=== PATIENT | female | born 1950 | race Caucasian/White ===

== ENCOUNTER → 2016-11-25 | Day surgery (SDC) | payer BC, OTHER ==
[2016-11-14 12:15] VITALS: Ht 158.8 cm; Wt 63.6 kg
[~2016-11-25] VITALS: Ht 158.8 cm; Wt 63.6 kg
[~2016-11-25] MED LIST: ASCO500T87 PO; CALC-393 PO; LIDOCAINE HCL 2% 2 ML VIAL (20MG/ML) ONE; MIDAZOLAM HCL 1 MG/ML 2ML VIAL ONE; OMEG10007 PO; ONDANSETRON INJ 2 MG/ML 2 ML VIAL ONE; PROPOFOL IV EMULSION 10 MG/ML 20 ML VIAL IV ONE; REDCAP2 PO; VTMD PO
--- NOTE | 2016-11-25 10:29 | Endo History and Physical ---
History & Physical Date of Service: Nov 25, 2016. Chief Complaint: screening Referring Physician: Stephanie MCFARLANE History of Present Illness 66 yo CF who presents for screening colonoscopy. Past Surgical History Hx Cardiac Surgery: No Hx Internal Defibrillator: No Hx Pacemaker: No Hx Abdominal Surgery: Yes (TUBAL LIGATION, CHIDI) Hx of Implantable Prosthesis: No Hx Cancer Surgery: No Hx Thoracic Surgery: No Hx Orthopedic: Yes (RT TKA) Hx Urinary Tract Surgery: No Family History Polyp Social History Smoking Status: Never Smoker Hx Substance Use: No Hx Alcohol Use: No Allergies Coded Allergies: Naproxen (Verified Adverse Reaction, Unknown, disoriented, 11/14/16) Statins (Verified Adverse Reaction, Unknown, Muscle Aches, 11/14/16) Current Medications Reported Home Medications Medications Dose Route/Sig Max Daily Dose Days Date Category Vitamin D (Ergocalciferol) 50,000 Interunit Cap 1 Cap PO WK 11/14/16 Reported Vitamin C Tr/Leeann Hips (Ascorbic Acid) 500 Mg Tab 2 Tab PO QAM 11/14/16 Reported Red Yeast Rice (Red Yeast Rice Extract) 600 Mg Cap 2 Cap PO QAM 11/14/16 Reported [place]-3 (Fish Oil) 1 Ea Cap 2 Cap PO QAM 11/14/16 Reported Calcium (Calcium Carbonate) 600 Mg Tab 1 Tab PO QAM 11/14/16 Reported Vital Signs Weight (Kilograms): 63.64 Height (Feet): 5 Height (Inches): 2.5 Date Time Temp Pulse Resp B/P Pulse Ox O2 Delivery O2 Flow Rate FiO2 11/25/16 09:18 36.9 76 20 120/61 100 Room Air Physical Exam General Appearance: WD/WN, no apparent distress Respiratory/Chest: Auscultation: breath sounds normal Cardiovascular: Heart Auscultation: RRR Abdomen: Bowel Sounds: normal Inspection & Palpation: soft, non-distended, no tenderness, guarding & rebound Assessment and Plan Assessment: 66 yo CF who presents for screening colonoscopy. Plan: Proceed with colonoscopy.
--- NOTE | 2016-11-25 11:03 | GI REPORT ---
Procedure Date: 11/25/2016 10:33 AM Procedure: Colonoscopy Indications: Screening for colorectal malignant neoplasm Medicines: Monitored Anesthesia Care Complications: No immediate complications. Estimated Blood Loss: Estimated blood loss: none. Procedure: Pre-Anesthesia Assessment: - Prior to the procedure, a History and Physical was performed, and patient medications and allergies were reviewed. The patient's tolerance of previous anesthesia was also reviewed. The risks and benefits of the procedure and the sedation options and risks were discussed with the patient. All questions were answered, and informed consent was obtained. Prior Anticoagulants: The patient has taken no previous anticoagulant or antiplatelet agents. ASA Grade Assessment: II - A patient with mild systemic disease. After reviewing the risks and benefits, the patient was deemed in satisfactory condition to undergo the procedure. After I obtained informed consent, the scope was passed under direct vision. Throughout the procedure, the patient's blood pressure, pulse, and oxygen saturations were monitored continuously. The Scope was introduced through the anus and advanced to the terminal ileum. The colonoscopy was performed without difficulty. The patient tolerated the procedure well. The quality of the bowel preparation was good. The terminal ileum, ileocecal valve, appendiceal orifice, and rectum were photographed. Findings: Multiple small-mouthed diverticula were found in the sigmoid colon. Internal hemorrhoids were found during retroflexion. The hemorrhoids were small. Impression: - Diverticulosis in the sigmoid colon. - Internal hemorrhoids. - No specimens collected. Recommendation: - Resume previous diet. - Continue present medications. - Repeat colonoscopy in 10 years for surveillance. - Return to primary care physician as previously scheduled. Eh Abrams, DO 11/25/2016 11:02:49 AM This report has been signed electronically. Note Initiated On: 11/25/2016 10:33 AM I attest to the content of the Intraoperative Record and orders documented therein, exceptions below
--- NOTE | 2016-11-25 11:03 | Discharge Instructions ---
Endoscopy Patient Instructions Date / Procedure(s) Performed Nov 25, 2016. Colonoscopy Allergy Information Coded Allergies: Naproxen (Verified Adverse Reaction, Unknown, disoriented, 11/14/16) Statins (Verified Adverse Reaction, Unknown, Muscle Aches, 11/14/16) Discharge Date / Findings Nov 25, 2016. Diverticulosis Internal hemorrhoids Medication Instructions Stopped Medication(s): last dose vitamin and suplements on Monday OK to resume all medications today as prescribed. Reported Home Medications Medications Dose Route/Sig Max Daily Dose Days Date Category Vitamin D (Ergocalciferol) 50,000 Interunit Cap 1 Cap PO WK 11/14/16 Reported Vitamin C Tr/Leeann Hips (Ascorbic Acid) 500 Mg Tab 2 Tab PO QAM 11/14/16 Reported Red Yeast Rice (Red Yeast Rice Extract) 600 Mg Cap 2 Cap PO QAM 11/14/16 Reported [place]-3 (Fish Oil) 1 Ea Cap 2 Cap PO QAM 11/14/16 Reported Calcium (Calcium Carbonate) 600 Mg Tab 1 Tab PO QAM 11/14/16 Reported Provider Instructions Activity Restrictions - No exercising or heavy lifting for 24 hours. - Do not drink alcohol the day of the procedure. - Do not drive a car or operate machinery until the day after the procedure. - Do not make any important decisions or sign important papers in 24 hours after the procedure. Following Day: - Return to full activity which may include returning to work/school. Diet Start your diet with liquids and light foods (jello, soup, juice, toast). Then eat your usual diet if not nauseated. Treatment For Common After Affects For mild abdominal pain, bloating, or excessive gas: - Rest - Eat lightly - Lie on right side Follow-Up Information Follow-up with Stephanie MCFARLANE as scheduled Anesthesia Information What You Should Know You have had a procedure that required some medicine to reduce anxiety and discomfort. This treatment is called moderate sedation. After receiving the treatment, you may be sleepy, but you will be able to breathe on your own. The effects of the treatment may last for several hours. Follow these instructions along with Activity/Diet recommendations noted above: * Do NOT do anything where dizziness or clumsiness would be dangerous. * Rest quietly at home today, then you can be up and about tomorrow. * Have a responsible person stay with you the rest of today. * You may have had an I.V. today. If so, you may take the dressing off later today. Recommendations Call your doctor if: * Trouble breathing * Continuous vomiting for more than 24 hours * Temperature above 101 degrees * Severe abdominal pain or bloating * Pain not relieved by pain medicine ordered * There is increased drainage or redness from any incision * A large amount of rectal bleeding greater than 2-3 tablespoons. (If you had a polyp/s removed or have hemorrhoids, a small amount of blood - from the rectum is to be expected.) * You have any unanswered questions or concerns. IN THE EVENT OF A SERIOUS EMERGENCY, GO TO THE NEAREST EMERGENCY ROOM Your discharge instructions were prepared by provider Eh Abrams. Patient Instructions Signature Page Sandy Henry Patient (or Guardian) Signature/Date: I have read and understand the instructions given to me by my caregivers. Caregiver/RN/Doctor Signature/Date: The above-named patient and/or guardian has received patient instructions on this date. + Original Patient Signature Page (only) stays with chart. Please make copy for patient.
[2016-11-25 11:27] VITALS: BP 106/59; PULSE 66; O2SAT 97
--- NOTE | 2016-11-25 12:08 | Anesthesiology Progress Note ---
Anesthesia Post Op Note Date & Time Nov 25, 2016 at 12:08 Vital Signs Pain Intensity: 0 Vital Signs Past 12 Hours Date Time Temp Pulse Resp B/P Pulse Ox O2 Delivery O2 Flow Rate FiO2 11/25/16 11:27 66 20 106/59 97 Room Air 11/25/16 11:14 65 20 94/52 96 Room Air 11/25/16 10:58 36.9 70 20 96/55 95 Room Air 11/25/16 09:18 36.9 76 20 120/61 100 Room Air Notes Mental Status: alert / awake / arousable, participated in evaluation Pt Amnestic to Procedure: Yes Nausea / Vomiting: adequately controlled Pain: adequately controlled Airway Patency, RR, SpO2: stable & adequate BP & HR: stable & adequate Hydration State: stable & adequate Anesthetic Complications: no major complications apparent
== END | disposition home or self-care (01) ==
LOC: C.GI 08:06
PROVIDERS: ATTEND Internal Medicine
DX: Z12.11 Encounter for screening for malignant neoplasm of colon (principal); K57.30 Diverticulosis of large intestine without perforation or abscess without bleeding; K64.8 Other hemorrhoids; Z98.51 Tubal ligation status; Z98.890 Other specified postprocedural states; Z88.5 Allergy status to narcotic agent

== ENCOUNTER → 2017-03-06 | Outpatient (CLI) | payer OTHER ==
[~2017-03-06] MED LIST changes: -LIDOCAINE HCL 2% 2 ML VIAL (20MG/ML) ONE; -MIDAZOLAM HCL 1 MG/ML 2ML VIAL ONE; -ONDANSETRON INJ 2 MG/ML 2 ML VIAL ONE; -PROPOFOL IV EMULSION 10 MG/ML 20 ML VIAL IV ONE
[2017-03-06 18:03] LABS: CALCIUM 9.6 mg/dl (8.5-10.1)
[2017-03-06 18:05] LABS: BLOOD UREA NITROGEN 12 mg/dl (7-18); BUN/CREATININE RATIO 16.8 (10-20); CARBON DIOXIDE 28 mmol/L (21-32); CHLORIDE 107 mmol/L (98-107); CHOLESTEROL 231 mg/dl (0-200); CHOLESTEROL/HDL RATIO 5.9; CREATININE 0.74 mg/dl (0.60-1.20); GLUCOSE 84 mg/dl (70-99); HDL CHOLESTEROL 39 mg/dl; LDL CHOLESTEROL CALCULATED 142 mg/dl; POTASSIUM 4.2 mmol/L (3.5-5.1); SODIUM 142 mmol/L (136-145); TRIGLYCERIDES 251 mg/dl (0-150); VERY LOW DENSITY LIPOPROT CALC 50 mg/dl
== END ==
LOC: C.LABBFT 11:05
PROVIDERS: ATTEND Nurse Practitioner
DX: E21.0 Primary hyperparathyroidism (principal); E55.9 Vitamin D deficiency, unspecified; M85.80 Other specified disorders of bone density and structure, unspecified site; E78.00 Pure hypercholesterolemia, unspecified

== ENCOUNTER → 2017-03-10 | Outpatient (CLI) | payer OTHER ==
--- NOTE | 2017-03-10 13:54 | MAMMOGRAPHY REPORT ---
BILATERAL DIGITAL SCREENING MAMMOGRAM WITH CAD: 03/10/2017 CLINICAL HISTORY: Routine screening. Patient has no complaints. TECHNIQUE: Current study was also evaluated with a Computer Aided Detection (CAD) system. Bilateral CC and MLO views were obtained. COMPARISON: Comparison is made to exams dated: 07/18/2011 mammogram, 01/17/2012 mammogram, 01/17/2013 mammogram, 01/20/2014 mammogram, 01/21/2015 mammogram, and 01/26/2016 mammogram - [facility]. BREAST COMPOSITION: The tissue of both breasts is almost entirely fatty. FINDINGS: No suspicious masses, calcifications, or areas of architectural distortion are noted in ei ther breast. There has been no significant interval change compared to prior exams. A biopsy marker clip is again noted in the right 12:00 breast from prior benign stereotactic biopsy of calcifications . IMPRESSION: ACR BI-RADS CATEGORY 2: BENIGN There is no mammographic evidence of malignancy. A 1 year screening mammogram is recommended. The pa tient will receive written notification of the results. Approximately 10% of breast cancers are not detected with mammography. A negative mammographic report should not delay biopsy if a clinically suggestive mass is present. Rosa Geronimo M.D. /:03/10/2017 11:27:09 Paediatric Surgeon: Mechelle BATISTA(R)(M), [facility] letter sent: Normal 1/2 BI-RADS Code: ACR BI-RADS Category 2: Benign
== END | disposition home or self-care (01) ==
LOC: C.MAMM 10:40
PROVIDERS: ATTEND Obstetrics & Gynecology
DX: Z12.31 Encounter for screening mammogram for malignant neoplasm of breast (principal)

== ENCOUNTER → 2017-07-24 | Outpatient (CLI) | payer OTHER | END | disposition home or self-care (01) | LOC: C.LABBFT 14:30 | PROVIDERS: ATTEND Internal Medicine Endocrinology, Diabetes & Metabolism | DX: E21.0 Primary hyperparathyroidism (principal); E55.9 Vitamin D deficiency, unspecified ==

== ENCOUNTER → 2017-09-08 | Outpatient (CLI) | payer OTHER ==
[2017-09-08 12:54] LABS: ALT/SGPT 31 U/L (12-78); AST/SGOT 26 U/L (15-37); BLOOD UREA NITROGEN 15 mg/dl (7-18); BUN/CREATININE RATIO 22.2 (10-20); CALCIUM 9.2 mg/dl (8.5-10.1); CARBON DIOXIDE 27 mmol/L (21-32); CHLORIDE 106 mmol/L (98-107); GLUCOSE 74 mg/dl (70-99); POTASSIUM 3.9 mmol/L (3.5-5.1); SODIUM 138 mmol/L (136-145)
[2017-09-08 12:57] LABS: ALB/GLOB RATIO 1.1 (0.9-2); ALKALINE PHOSPHATASE 52 U/L (45-117); CHOLESTEROL 207 mg/dl (0-200); CHOLESTEROL/HDL RATIO 5.3; HDL CHOLESTEROL 39 mg/dl; LDL CHOLESTEROL CALCULATED 119 mg/dl; TRIGLYCERIDES 243 mg/dl (0-150); VERY LOW DENSITY LIPOPROT CALC 49 mg/dl
== END | disposition home or self-care (01) ==
LOC: C.LABBFT 10:16
PROVIDERS: ATTEND Nurse Practitioner
DX: E78.00 Pure hypercholesterolemia, unspecified (principal); M85.80 Other specified disorders of bone density and structure, unspecified site

== ENCOUNTER → 2017-09-13 | Outpatient (CLI) | payer OTHER | END | disposition home or self-care (01) | LOC: C.PAPS 10:58 | PROVIDERS: ATTEND Obstetrics & Gynecology | DX: Z12.4 Encounter for screening for malignant neoplasm of cervix (principal) ==

== ENCOUNTER 2019-12-20 15:41 | Inpatient (IN) ==
[2019-12-20] MEDS ORDERED: ONDANSETRON INJ 2 MG/ML 2 ML VIAL IV STA (15:56)
[2019-12-20] MEDS ORDERED: SODIUM CHLORIDE 0.9% 1000ML 1,000 ML IV SCH (16:00)
--- NOTE | 2019-12-20 16:01 | Emergency Department Note ---
ED Provider Note Provider: Augusto Da Silva MD DATE OF SERVICE: 12/20/2019 CHIEF COMPLAINT: Shortness of breath, dizziness HISTORY OF PRESENT ILLNESS: Patient is a 69-year-old female history of arthritis presenting today complaining of 5 days of some dizziness and 2 days of significant shortness of breath. Patient states on Monday this week and began to have a headache and some dizziness. Denies numbness or tingling in the extremities. Reports yesterday started with cough and feeling short of breath. Has been taking care of some sick young relatives and 1 of her relatives has had pneumonia in 1 recently returned from [place]. No other travel for this patient reported. No leg swelling. Denies chest pain or abdominal pain. Denies headache at the current time. States he does feel dizzy and became nauseous upon arriving here. REVIEW OF SYSTEMS: A total of 10 review of systems was obtained and negative except as stated above in the HPI. PAST MEDICAL HISTORY: As noted above MEDICATIONS: Has tried some ibuprofen at home without improvement. Aspirin SOCIAL HISTORY: Non-smoker. Denies drug use. PHYSICAL EXAM: GENERAL: alert and oriented laying on the stretcher tachypneic Head: normocephalic and atraumatic EYES: No injection, discharge or icterus. PERRL, EOMI. NECK: Trachea midline. Supple. ENT: Mucous membranes pink and moist. Pharynx without erythema or exudate. LUNGS: Airway patent. Breath sounds clear but increased work of breathing and moderately tachypneic HEART: Regular rate and rhythm. No chest wall tenderness ABDOMEN: Soft and non-tender, without guarding or rebound. SKIN: Acyanotic, warm, dry, without rashes EXTREMITIES: Without swelling, tenderness or deformity NEUROLOGICAL: No focal deficits. No aphasia. No facial droop or slurred speech. Normal strength and tone in the extremities. Sensation to gross touch normal. EKG: Normal sinus rhythm 87 beats per minutes. No PVC. No ST elevation but some inferior lateral ST depression, QTC of 478. Compared to previous from May 092011 ST depressions do appear notable today. CONTINUOUS CARDIAC MONITORING: was ordered and showed a heart rate of 78 bpm in NSR Patient's hypertension was referred to the hospitalist HOSPITAL COURSE: 155 Patient was first seen and H&P performed. 171 Patient reassessed and updated. Patient was endorsing mild improvement. 182 patient reassessed and updated. Still with tachypnea and feeling chills. Patient's laboratory studies and imaging reviewed. Differential includes Reactive airway disease, pneumonia, pneumothorax, COPD, CHF, infections, cardiac ischemia, pulmonary embolism, musculoskeletal, gastroin testinal, as well as other pathologies. IMPRESSION/MEDICAL DECISION MAKING: Patient is significantly tachypneic upon arrival but lungs sound clear. No fevers reported. Some ill contacts at home noted. No travel for this patient. Seems less likely to be at the current time given lack of community spread to be COIVD. EKG, d-dimer, chest x-ray, and basic labs were completed. Influenza testing sent. Patient without focal neurological deficit but she does relay feeling dizzy. States she feels nauseous second to this. Given some Zofran IV fluid. Benign abdomen otherwise. Patient later reports that she has a history distantly of some vertigo that was somewhat similar to this. Given this I did trial some meclizine. EKG does show some lateral inferior ST depression. Again patient denies acute chest pain at this point. Patient has been saturating 100% on 2 L of oxygen. On reassessment patient stated some improvement. No significant anemia is noted. Some mild lymphopenia and leukopenia is noted. Slight hyponatremia noted. Negative troponin. Patient still somewhat tachypneic. D-dimer was positive and CT of the chest was complete as well as CT of the head. CT the head unremarkable. CT of the chest without evidence of PE findings consistent with possible bronchitis are noted. Influenza testing does come back positive flu B. Symptoms likely related to this. Started on Tamiflu as the patient still tachypneic I believe requires further observation here in the hospital. The hospitalist was called to evaluate the patient. DIAGNOSIS: Influenza, shortness of breath, dizziness DISPOSITION: Hospitalist will evaluate Impression & Plan Influenza B, Acute dyspnea, Dizziness Past Med/Surg History Medical History (Updated 12/20/19 @ 20:57 by Augusto Da Silva M.D.) Diverticulosis (Resolved) History of primary hyperparathyroidism (Resolved) Surgical History (Updated 04/24/19 @ 11:48 by Joaquin Robbins) History of adenoidectomy History of colonoscopy History of knee replacement History of parathyroid surgery History of tonsillectomy Family History (Updated 04/24/19 @ 11:59 by Joaquin Robbins) Father Diabetes Brother Diabetes Social History (Updated 04/24/19 @ 12:01 by Joaquin Robbins) Preferred Language: Greek Communication Ability: Effective 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 Beliefs That Will Affect Care: None Current Living Situation: Spouse Feels Safe at Home: Yes Safety Concerns: Feels Safe At This Time Smoking Status: Never smoker Hx Alcohol Use: No Hx Substance Use: No Results & Data Vital Signs Vital Signs - 24 hr 12/20/19 15:52 12/20/19 16:15 12/20/19 16:45 Temperature 36.5 C Temperature Source Oral Pulse Rate 91 H Pulse Rate [Apical] 78 Pulse Rate from SpO2 Sensor Respiratory Rate 44 H 35 H Respiratory Effort / Characteristics Short of Breath Respiratory Depth Shallow Respiratory Pattern Tachypnea Tachypnea Blood Pressure 93/75 L Blood Pressure [Left Arm] 114/81 Blood Pressure Mean 81 Blood Pressure Mean [Left Arm] 92 Pulse Oximetry 100 100 100 Oxygen Delivery Method Nasal Cannula Nasal Cannula Nasal Cannula Oxygen Flow Rate 2 2 2 Sepsis Recent Fever Within 48 Hours No Sepsis Action Taken by Nursing No Action Required 12/20/19 17:00 12/20/19 17:36 12/20/19 18:31 Temperature Temperature Source Pulse Rate 73 73 Pulse Rate [Apical] 77 Pulse Rate from SpO2 Sensor 73 73 Respiratory Rate 28 H 41 H 28 H Respiratory Effort / Characteristics Respiratory Depth Respiratory Pattern Blood Pressure 124/93 110/74 Blood Pressure [Left Arm] 133/67 Blood Pressure Mean 108 83 Blood Pressure Mean [Left Arm] 89 Pulse Oximetry 100 99 100 Oxygen Delivery Method Room Air Oxygen Flow Rate Sepsis Recent Fever Within 48 Hours Sepsis Action Taken by Nursing Laboratory Data Result diagrams: 12/20/19 16:29 12/20/19 16:29 Lab Results 12/20/19 12/20/19 12/20/19 Range/Units 16:17 16:29 16:29 WBC 2.89 L (4.8-10.8) K/uL RBC 4.45 (4.2-5.4) M/uL Hgb 13.7 (12.0-16.0) g/dL Hct 39.1 (37-47) % MCV 87.9 (80-100) fL MCH 30.8 (25-34) pg MCHC 35.0 (32-36) g/dL RDW Std Deviation 41.3 (36.4-46.3) fL RDW Coeff of Koko 12.8 (11.5-14.5) % Plt Count 140 (130-400) K/uL MPV 10.6 H (7.4-10.4) fL Immature Gran % (Auto) 0.3 % Neut % (Auto) 57.5 % Lymph % (Auto) 29.4 % Mcintosh % (Auto) 11.4 % Eos % (Auto) 0.7 % Baso % (Auto) 0.7 % Immature Gran # (Auto) 0.01 (0.00-0.02) K/uL Neut # (Auto) 1.66 (1.4-6.5) K/uL Lymph # (Auto) 0.85 L (1.2-3.4) K/uL Mc[place]osh # (Auto) 0.33 (0.11-0.59) K/uL Eos # (Auto) 0.02 (0-0.5) K/uL Baso # (Auto) 0.02 (0-0.2) K/uL PT 11.1 (9.0-12.0) Seconds INR 1.1 (0.9-1.1) APTT 28.3 (21.0-31.0) Seconds PTT Ratio 1.0 D-Dimer 610 H* (0-500) ug/L FEU Sodium (136-145) mmol/L Potassium (3.5-5.1) mmol/L Chloride (98-107) mmol/L Carbon Dioxide (21-32) mmol/L Anion Gap (3-11) BUN (7-18) mg/dl Creatinine (0.6-1.2) mg/dl Est Cr Clr Drug Dosing ml/min Est GFR ( Amer) Est GFR (Non-Af Amer) BUN/Creatinine Ratio (10-20) Glucose (70-99) mg/dl Calcium (8.5-10.1) mg/dl Magnesium (1.8-2.4) mg/dl Total Bilirubin (0.2-1) mg/dl AST (15-37) U/L ALT (12-78) U/L Alkaline Phosphatase (45-117) U/L Troponin I (0-0.045) ng/ml Total Protein (6.4-8.2) gm/dl Albumin (3.4-5.0) gm/dl Globulin (2.5-4.0) gm/dl Albumin/Globulin Ratio (0.9-2) Specimen Hemolysis Urine Color Urine Appearance (Clear) Urine pH (4.5-7.5) Ur Specific [place] (1.000-1.030) Urine Protein (Negative) Urine Glucose (UA) (Negative) Urine Ketones (Negative) Urine Blood (Negative) Urine Nitrite (Negative) Urine Bilirubin (Negative) Urine Urobilinogen (Negative) Ur Leukocyte Esterase (Negative) Urine WBC (Auto) (0-5) /hpf Urine RBC (Auto) (0-4) /hpf U Hyaline Cast (Auto) (0-5) /lpf U Epithel Cells (Auto) (0-5) /lpf Urine Bacteria (Auto) (Negative) Influenza Type A (PCR) Neg for Influ A (Neg) Influenza Type B (PCR) Pos for Influ B A* (Neg) 12/20/19 12/20/19 12/20/19 Range/Units 16:29 17:38 17:43 WBC (4.8-10.8) K/uL RBC (4.2-5.4) M/uL Hgb (12.0-16.0) g/dL Hct (37-47) % MCV (80-100) fL MCH (25-34) pg MCHC (32-36) g/dL RDW Std Deviation (36.4-46.3) fL RDW Coeff of Koko (11.5-14.5) % Plt Count (130-400) K/uL MPV (7.4-10.4) fL Immature Gran % (Auto) % Neut % (Auto) % Lymph % (Auto) % Mcintosh % (Auto) % Eos % (Auto) % Baso % (Auto) % Immature Gran # (Auto) (0.00-0.02) K/uL Neut # (Auto) (1.4-6.5) K/uL Lymph # (Auto) (1.2-3.4) K/uL [place] # (Auto) (0.11-0.59) K/uL Eos # (Auto) (0-0.5) K/uL Baso # (Auto) (0-0.2) K/uL PT (9.0-12.0) Seconds INR (0.9-1.1) APTT (21.0-31.0) Seconds PTT Ratio D-Dimer (0-500) ug/L FEU Sodium 133 L (136-145) mmol/L Potassium Cancelled (3.5-5.1) mmol/L Chloride 103 (98-107) mmol/L Carbon Dioxide 19 L (21-32) mmol/L Anion Gap 11.0 (3-11) BUN 12 (7-18) mg/dl Creatinine 0.97 (0.6-1.2) mg/dl Est Cr Clr Drug Dosing 42.7 ml/min Est GFR ( Amer) 68.6 Est GFR (Non-Af Amer) 59.2 BUN/Creatinine Ratio 12.6 (10-20) Glucose 95 (70-99) mg/dl Calcium 8.7 (8.5-10.1) mg/dl Magnesium Cancelled (1.8-2.4) mg/dl Total Bilirubin 0.9 (0.2-1) mg/dl AST Cancelled (15-37) U/L ALT 41 (12-78) U/L Alkaline Phosphatase 47 (45-117) U/L Troponin I < 0.015 (0-0.045) ng/ml Total Protein 7.2 (6.4-8.2) gm/dl Albumin 3.5 (3.4-5.0) gm/dl Globulin 3.7 (2.5-4.0) gm/dl Albumin/Globulin Ratio 0.9 (0.9-2) Specimen Hemolysis Urine Color Yellow Urine Appearance Clear (Clear) Urine pH 7.0 (4.5-7.5) Ur Specific [place] 1.004 (1.000-1.030) Urine Protein Negative (Negative) Urine Glucose (UA) Negative (Negative) Urine Ketones 1+ H (Negative) Urine Blood 1+ H (Negative) Urine Nitrite Negative (Negative) Urine Bilirubin Negative (Negative) Urine Urobilinogen Negative (Negative) Ur Leukocyte Esterase Negative (Negative) Urine WBC (Auto) 1-5 (0-5) /hpf Urine RBC (Auto) 0-4 (0-4) /hpf U Hyaline Cast (Auto) 0 (0-5) /lpf U Epithel Cells (Auto) >30 H (0-5) /lpf Urine Bacteria (Auto) Negative (Negative) Influenza Type A (PCR) (Neg) Influenza Type B (PCR) (Neg) Administered Medications Oseltamivir Phosphate (Tamiflu) 30 mg PO ONCE LISA; Protocol Stop: 12/25/19 17:59 Last Admin: 12/20/19 19:09 Dose: 30 mg Documented by: [id number] Discontinued Medications Sodium Chloride (Nss 1000ml) 1,000 mls @ 999 mls/hr IV .Q1H1M LISA Stop: 12/20/19 17:00 Last Infusion: 12/20/19 17:14 Dose: 0 mls/hr Documented by: [id number] Admin: 12/20/19 16:13 Dose: 999 mls/hr Documented by: [id number] Ioversol (Optiray 320 125ml) 119 ml IV ONCE PRN PRN Reason: Interaction Checking Stop: 12/24/19 18:03 Last Admin: 12/20/19 18:04 Dose: 119 ml Documented by: [id number] Meclizine HCl (Antivert) 25 mg PO NOW STA Stop: 12/20/19 16:22 Last Admin: 12/20/19 16:40 Dose: 25 mg Documented by: [id number] Ondansetron HCl (Zofran) 4 mg IV NOW STA Stop: 12/20/19 15:57 Last Admin: 12/20/19 16:13 Dose: 4 mg Documented by: [id number] Discharge Plan Visit Data *Final* Discharge Date/Time: 12/20/19 20:15 Chief Complaint: Shortness of Breath/Dyspnea Stated Complaint: BREATHING DIFF ED Provider: Augusto Da Silva Discharge Problem: Influenza B, Acute dyspnea, Dizziness Patient Disposition: Admitted As Inpatient Condition: Fair Discharge Instructions Interventions: ED Discharge Assessment Last Done: 12/20/19 20:15
[2019-12-20] MEDS ORDERED: MECLIZINE HCL 25 MG TAB PO STA (16:21)
--- NOTE | 2019-12-20 16:44 | XRay Report ---
XR chest 1V portable CLINICAL HISTORY: Dyspnea COMPARISON STUDY: May 09, 2012 FINDINGS: The cardiac and mediastinal contours are normal. There is no evidence of focal pulmonary co nsolidation. There is no evidence of failure. No pleural effusions are visualized.[There is a thoraco lumbar scoliosis. IMPRESSION: No active disease in the chest. ACT 112: Negative or not required by law. Electronically signed by: Sanjay Guevara M.D. 12/20/2019 4:43 PM
[2019-12-20 16:51] LABS: Basophils # (auto) 0.02 K/uL (0-0.2); Basophils % (auto) 0.7 %; Eosinophils # (auto) 0.02 K/uL (0-0.5); Eosinophils % (auto) 0.7 %; Hematocrit (blood only) 39.1 % (37-47); Hemoglobin 13.7 g/dL (12.0-16.0); Immature Granulocytes # (auto) 0.01 K/uL (0.00-0.02); Immature Granulocytes % (auto) 0.3 %; Lymphocytes # (auto) 0.85 K/uL (1.2-3.4); Lymphocytes % (auto) 29.4 %; Mean Corpuscular Hemoglobin 30.8 pg (25-34); Mean Corpuscular Volume 87.9 fL (80-100); Mean Platelet Volume 10.6 fL (7.4-10.4); Monocytes # (auto) 0.33 K/uL (0.11-0.59); Monocytes % (auto) 11.4 %; Neutrophils # (auto) 1.66 K/uL (1.4-6.5); Neutrophils % (auto) 57.5 %; Platelet Count 140 K/uL (130-400); RDW Coefficient of Variation 12.8 % (11.5-14.5); RDW Standard Deviation 41.3 fL (36.4-46.3); Red Blood Count 4.45 M/uL (4.2-5.4); White Blood Count 2.89 K/uL (4.8-10.8)
[2019-12-20 16:53] LABS: Influenza A virus by PCR Neg for Influ A (Neg)
[2019-12-20 17:06] LABS: INR 1.1 (0.9-1.1); Partial Thromboplastin Time 28.3 Seconds (21.0-31.0); Prothrombin Time 11.1 Seconds (9.0-12.0)
[2019-12-20 17:07] LABS: D Dimer 610 ug/L FEU (0-500)
[2019-12-20 17:20] LABS: Alanine Aminotransferase 41 U/L (12-78); Albumin Globulin Ratio 0.9 (0.9-2); Albumin Level 3.5 gm/dl (3.4-5.0); Alkaline Phosphatase 47 U/L (45-117); BUN Creatinine Ratio 12.6 (10-20); Bilirubin,Total 0.9 mg/dl (0.2-1); Blood Urea Nitrogen 12 mg/dl (7-18); Calcium 8.7 mg/dl (8.5-10.1); Carbon Dioxide 19 mmol/L (21-32); Chloride 103 mmol/L (98-107); Creatinine Clr Calc Pharmacy 42.7 ml/min; Est GFR (African American) 68.6; Est GFR (Non-African American) 59.2; Globulin 3.7 gm/dl (2.5-4.0); Glucose 95 mg/dl (70-99); Sodium 133 mmol/L (136-145); Total Protein 7.2 gm/dl (6.4-8.2); Troponin I < 0.015 ng/ml (0-0.045)
[2019-12-20] MEDS ORDERED: OSELTAMIVIR PHOSPHATE SUSP 30 MG/5 ML UDP PO SCH (18:00)
[2019-12-20] MEDS ORDERED: OPTIRAY 320 125ml IV PRN (18:04)
--- NOTE | 2019-12-20 18:06 | CT Scan Report ---
CT head/brain wo con CLINICAL HISTORY: 69 years-old Female with dizzy. sob. Acute shortness of breath with dizziness TECHNIQUE: Multiple axial CT images of the head were obtained without contrast. A dose lowering tech nique was utilized adhering to the principles of ALARA. CT DOSE: 537.48 mGy.cm COMPARISON: CT of the head 05/02/2016. FINDINGS: No acute intracranial hemorrhage, midline shift, intracranial mass, hydrocephalus, territorial ischem ia or abnormal extra-axial collection. Minimal patchy white matter hypodensities suggest probable chr onic microvascular ischemic disease. Mild age-related involutional changes. Cerebral vascular calcifi cations are noted. The calvarium is intact. Mild to moderate mucosal thickening of the ethmoid air cells. Mild mucosal thickening with small air-fluid level of the right maxillary sinus and sphenoid sinuses. Mastoid air cells are clear. Skull, soft tissues and orbits are unremarkable. IMPRESSION: No acute intracranial abnormality. ACT 112: Negative or not required by law. The above report was generated using voice recognition software. It may contain grammatical, syntax o r spelling errors. Electronically signed by: Kyle Redman M.D. 12/20/2019 6:05 PM
--- NOTE | 2019-12-20 18:24 | CT Scan Report ---
CT angio chest PE protocol CT DOSE: 315.36 mGy.cm HISTORY: 69 years-old Female with PE, SOB, +dimer. Acute shortness of breath with elevated d-dimer level TECHNIQUE: Multiple CTA images of the chest were obtained after the intravenous administration of 119 ml Optiray 320. Coronal and sagittal MIPS were obtained from the axial data set and were submitted for review. All measurements were obtained according to NASCET criteria. A dose lowering technique w as utilized adhering to the principles of ALARA. COMPARISON: Chest radiograph of same day FINDINGS: CTA: Heart is normal in size without pericardial effusion. Thoracic aorta is normal in course and caliber without aneurysm or dissection. Patency of the imaged great vessels. Mild tortuosity of the descendin g thoracic aorta. The pulmonary arterial tree is opacified to the level of the subsegmental branches and demonstrates no filling defects to suggest pulmonary thromboembolic disease. CT CHEST: Unremarkable thyroid. Borderline enlarged mediastinal and hilar lymph nodes measure up to 10 mm in sh ort axis, notably within the right hilar and subcarinal distributions. There is no pneumothorax, pleu ral effusion, overt pulmonary edema or airspace consolidation typical for pneumonia. Mild bilateral b ronchial wall thickening. No suspicious pulmonary nodules or masses. Fissural nodule left midlung faustino suring 8 mm is suggestive of a probable lymph node (image 132 series 4). Cholecystectomy. No acute process of the imaged upper abdomen. Mild dilation of the extrahepatic bili andres tree is likely on a postsurgical basis. Tiny hiatal hernia. Hepatic steatosis. Soft tissues and b reast parenchyma appear unremarkable. Biopsy clip of the right breast. Convex right curvature of the midthoracic spine. No acute fracture or suspicious bone lesion. IMPRESSION: 1. No acute aortic pathology or evidence of pulmonary thromboembolic disease. 2. No pleural effusion or airspace consolidation typical for pneumonia. 3. Mild bronchial wall thickening may be reflect reactive airway disease versus bronchitis. 4. Mild mediastinal and hilar adenopathy, likely reactive. 5. Hepatic steatosis. ACT 112: Negative or not required by law. The above report was generated using voice recognition software. It may contain grammatical, syntax o r spelling errors. Electronically signed by: Kyle Redman M.D. 12/20/2019 6:22 PM
--- NOTE | 2019-12-20 18:26 | Electrocardiogram Report ---
Test Reason : Blood Pressure : / mmHG Vent. Rate : 087 BPM Atrial Rate : 087 BPM P-R Int : 116 ms QRS Dur : 072 ms QT Int : 398 ms P-R-T Axes : 053 082 021 degrees QTc Int : 478 ms Poor data quality, interpretation may be adversely affected Normal sinus rhythm Nonspecific ST and T wave abnormality Abnormal ECG When compared with ECG of 09-MAY-2012 12:36, ST now depressed in Anterior leads Nonspecific T wave abnormality now evident in Inferior leads QT has lengthened Confirmed by Denis Castro ([id number]) on 12/20/2019 6:26:47 PM Referred By: REFERRED SELF Confirmed By:Denis Castro
--- NOTE | 2019-12-20 18:40 | History & Physical Report ---
Date of Service December 20, 2019 Assessment & Plan (1) Influenza B: (2) Acute respiratory distress: - Admit to med surg with tele - Tamiflu started in the ER - Serology + for Influenza B - Continue supportive tx with duonebs QID and Q2H prn, O2, tylenol -PT/OT when feels able to/ad marcos. -Placed on NSS at 125 mL/h x 12 hours, patient appears to be hypovolemic on exam, poor oral intake for several days -Continue IV Zofran PRN nausea, vomited x1 today patient also notes that she may have been motion sick on the right over. She denies any concurrent dizziness at this time (3) History of primary hyperparathyroidism: -1 parathyroid gland removed approximately 5 years ago in [place] (4) Hypercholesterolemia: - Continue exetimibe 10 mg daily (5) Vitamin D deficiency: -Continue continue supplementation with vitamin D/calcium (6) Osteopenia: - Continue Vit D and calcium supplementation, encourage daily exercise as outpatient (7) DVT prophylaxis: - zachariah cardoso CODE: DNR Dispo: From home, likely remain in the hospital x1 to 2 days History of Present Illness Primary Care Provider: DENYS Blankenship This is a 69-year-old female with past medical history of primary hyperparathyroidism, diverticulosis, HLD, osteopenia, vitamin D deficiency who presents with acute onset of shortness of breath. She reports watching her great grandchildren in the past week because her daughter had to work and they are out of school due to the COVID-19 mitigation. Both of her 2 great grandchildren ages 4 and 8 tested positive for influenza this week as well. Her daughter has recently traveled from [facility], and was sent home from working here at [facility] earlier today as she spiked a fever. Pt reports that she has felt increased fatigue, myalgia, chills/shakes, intermittent cough since Monday but today progressively grew worse. She reports that she cannot catch her breath. Here in the ER patient had respiratory rate in the 40s upon arrival, now improved to the high 20s with 2 L O2 on at bedside. She also reports a very poor appetite, last time she really ate was on Monday. She has had difficulty keeping down liquids, tried earlier today, felt nauseous and v omited x1. She denies any recent travel herself. Patient denies any acute shortness of breath, chest tightness, chest pain. Her oral intake has been very poor recently. Patient found to be influenza B positive. Allergies Allergy/AdvReac Type Severity Reaction Status Date / Time naproxen AdvReac Unknown disoriented Verified 12/20/19 17:01 Idmmtge-Atv-Wgj Reductase AdvReac Unknown Muscle Verified 12/20/19 17:01 Inhibitor Aches Home Medications Home Medications Medication Instructions Recorded Confirmed Type aspirin 81 mg tablet,delayed 81 mg PO DAILY #90 tab 05/01/19 12/20/19 Rx release cholecalciferol (vitamin D3) 25 2,000 units PO DAILY #30 cap 05/01/19 12/20/19 Rx mcg (1,000 unit) capsule calcium carbonate 600 mg calcium 600 mg PO DAILY tab 05/10/19 12/20/19 History (1,500 mg) tablet ezetimibe 10 mg tablet 10 mg PO DAILY #90 tab 10/25/19 12/20/19 Rx Past Med/Surg History Medical History (Updated 12/20/19 @ 18:38 by Fior Nicholas PA-C) Diverticulosis (Resolved) History of primary hyperparathyroidism (Resolved) Surgical History (Updated 04/24/19 @ 11:48 by Joaquin Robbins) History of adenoidectomy History of colonoscopy History of knee replacement History of parathyroid surgery History of tonsillectomy Family History (Updated 04/24/19 @ 11:59 by Joaquin Robbins) Father Diabetes Brother Diabetes Social History (Updated 04/24/19 @ 12:01 by Joaquin Robbins) Feels Safe at Home: Yes Smoking Status: Never smoker Review of Systems Review of Systems: Constitutional: No fever,+ sweats or chills, + myalgias, + fatigue Eyes: No diplopia, no worsening or blurred vision ENT: normal hearing, no trouble swallowing, no sore throat or runny nose Respiratory: No cough, sputum, + dyspnea at rest and with minimal exertion Cardiovascular: No chest pain, tightness or palpitations Abdomen: No pain, + nausea, vomiting x1 today, + diarrhea intermittently x3 days, no constipation Musculoskeletal: No joint pain, calf pain, swelling Neurologic: + Generalized weakness, no numbness/tingling, or balance problems Psychiatric: No anxiety or depression Skin: No rash or itch Physical Exam Physical Exam: General: awake, alert, no apparent distress, + fatigued, + appears ill Head: Normocephalic, atraumatic ENT: PERRL, EOMI, no pharyngeal exudate, + mucous membranes dry Chest: On 2L via NC, + rhonchorous breath sounds bilateral bases, no wheeze Cardiac: Regular rate and rhythm, no murmur, no JVD, normal peripheral pulses, good capillary refill Abdominal: NABS x 4 quadrants, soft, nondistended, nontender to palpation, no rebound, guarding or tenderness Extremities: Normal inspection, no peripheral edema or erythema, calfs nontender to palpation Psych: Normal mood and affect Neuro: AAO x 3, no gross motor deficits, speech is clear, no peripheral sensory deficits Skin: no rash or erythema Results & Data Vital Signs (Past 12 Hours) Vital Signs Temp Pulse Pulse Resp BP BP Pulse Ox 12/20/19 17:36 77 41 H 133/67 99 12/20/19 17:00 73 28 H 124/93 100 12/20/19 16:45 78 35 H 114/81 100 12/20/19 16:15 100 12/20/19 15:52 36.5 C 91 H 44 H 93/75 L 100 Code Status & VTE Plan Code Status DNR-discussed with the patient and her at bedside Supervising Physician Co-Signing Physician Notes I personally examined the patient and verified all jessica points of history and exam, discussed case, and agree with decision making with Izabel Nicholas PAC SOB - especially MCQUEEN. flu B (+), sick contacts. vitals noted fatigued appearing lungs actaully reasonably clear maybe faintly coarse base R no other r/r/w good effort no accessory muscles skin no pallor or icterus flu B and respiratory distress/flu induced bronchitis picture -tamiflu, O2, supportive care -no chronic lung hx/risks for COPD no role for abx poor oral intake -related to flu as well -agree IVF -supportive care/antiemetics/encourage diet otherwise as above PG Care Time/CCT Total # of Minutes Spent Total Time Spent with Patient: Total time spent is greater than 50% in coordin ation of care (as documented) at patient's floor/unit and/or counseling patient: Coding Level of Care Code 20478 Initial Inpt Care Lvl 3 Diagnoses Influenza B J10.1 Acute respiratory distress R06.03 History of primary hyperparathyroidism Z86.39 Hypercholesterolemia E78.00 Vitamin D deficiency E55.9 Osteopenia M85.80 DVT prophylaxis Z29.9
[2019-12-20 18:56] LABS: Appearance Urine Clear (Clear); Bacteria Urine Automated Negative (Negative); Bilirubin Urine Negative (Negative); Blood Urine 1+ (Negative); Cast Urine Automated 0 /lpf (0-5); Color Urine Yellow; Epithelial Cell Urine Auto >30 /lpf (0-5); Glucose Urine UA Negative (Negative); Ketones Urine 1+ (Negative); Leukocyte Esterase Urine Negative (Negative); Nitrite Urine Negative (Negative); Protein Urine Negative (Negative); RBC Urine Automated 0-4 /hpf (0-4); Specific Gravity Urine 1.004 (1.000-1.030); Urobilinogen Urine Negative (Negative)
[2019-12-20] MEDS ORDERED: ACETAMINOPHEN 325 MG TAB PO PRN (20:32)
[2019-12-20] MEDS ORDERED: ONDANSETRON INJ 2 MG/ML 2 ML VIAL IV PRN (20:32)
[2019-12-20] MEDS: SODIUM CHLORIDE 0.9% 1000ML 1,000 ML IV SCH (21:21)
[2019-12-20] MEDS: LEVALBUTEROL HCL 1.25 MG/3 ML NEB INH SCH (22:10)
[2019-12-21] MEDS: LEVALBUTEROL HCL 1.25 MG/3 ML NEB INH SCH ×2 (01:20→07:16)
[2019-12-21] MEDS: SODIUM CHLORIDE 0.9% 1000ML 1,000 ML IV SCH (04:59)
[2019-12-21 07:38] LABS: Hematocrit (blood only) 35.9 % (37-47); Hemoglobin 12.2 g/dL (12.0-16.0); Mean Corpuscular Hemoglobin 30.3 pg (25-34); Mean Corpuscular Volume 89.1 fL (80-100); Platelet Count 131 K/uL (130-400); RDW Coefficient of Variation 13.2 % (11.5-14.5); RDW Standard Deviation 43.4 fL (36.4-46.3); Red Blood Count 4.03 M/uL (4.2-5.4); White Blood Count 2.76 K/uL (4.8-10.8)
--- NOTE | 2019-12-21 07:39 | Hospitalist Progress Note ---
Date of Service December 21, 2019 Assessment & Plan (1) Influenza B: Ms. Henry is a 69 year old female with a past medical history of hyperparathyroidism, hyperlipidemia, and Vitamin D deficiency/osteopenia who was admitted to [facility] due to acute respiratory distress secondary to Influenza B. Acute respiratory distress secondary to Influenza B - Serology + for Influenza B - CTA negative for PE and pneumonia - patient w/respiratory rate of 44 on presentation to the ER -> improved w/oxygen supplementation - continue O2, wean as tolerated. Pt currently requiring 2L -> trial of taking pt off O2 this AM, but patient desaturated to 84% and was placed back on 2L -> Comfortable at rest, MCQUEEN noted - Continue 5 days of Tamiflu, started in the ER - Continue supportive treatment with duonebs QID prn, O2, tylenol - PT/OT evals - IVF discontinued - Continue IV Zofran PRN nausea History of primary hyperparathyroidism: - 1 parathyroid gland removed approximately 5 years ago in [place] Hypercholesterolemia - Continue ezetimibe 10 mg daily Vitamin D deficiency/osteopenia - Continue continue supplementation with vitamin D/calcium Code status: DNR DVT prophylaxis: SCDs Disposition: remains on med/surg (2) Acute respiratory distress: (3) History of primary hyperparathyroidism: (4) Hypercholesterolemia: (5) Vitamin D deficiency: (6) Osteopenia: (7) DVT prophylaxis: Admission and Anticipated Discharge Date Admission Date: December 20, 2019 Results & Data ([facility]) Vital Signs (Past 12 Hours) Vital Signs Temp Pulse Pulse Pulse Resp BP BP 12/21/19 07:16 65 17 12/21/19 04:43 37.1 C 73 18 101/63 12/21/19 01:22 68 18 12/21/19 00:48 73 12/21/19 00:03 36.8 C 81 20 108/65 12/20/19 22:13 88 16 12/20/19 20:39 71 12/20/19 20:20 36.8 C 91 H 28 H 114/65 12/20/19 20:00 76 36 H 114/69 Pulse Ox 12/21/19 07:16 98 12/21/19 04:43 97 12/21/19 01:22 98 12/21/19 00:48 12/21/19 00:03 98 12/20/19 22:13 98 12/20/19 20:39 12/20/19 20:20 94 12/20/19 20:00 100 Resident Activity Tracking Resident Involvement: Resident Care Provided Care Provided: Adult Hospital Medicine
[2019-12-21 08:13] LABS: Albumin Level 3.3 gm/dl (3.4-5.0); BUN Creatinine Ratio 11.6 (10-20); Calcium 8.3 mg/dl (8.5-10.1); Creatinine Clr Calc Pharmacy 61.7 ml/min; Est GFR (African American) 93.6; Est GFR (Non-African American) 80.8; Potassium 3.2 mmol/L (3.5-5.1)
[2019-12-21] MEDS ORDERED: LEVALBUTEROL HCL 1.25 MG/3 ML NEB INH PRN (08:18)
[2019-12-21 08:23] LABS: Bilirubin,Total 0.5 mg/dl (0.2-1); Globulin 3.5 gm/dl (2.5-4.0); Total Protein 6.8 gm/dl (6.4-8.2)
[2019-12-21] MEDS ORDERED: POTASSIUM CHLORIDE 20 MEQ TABCR PO STA (08:25)
[2019-12-21] MEDS ORDERED: ASPIRIN 81 MG ECTAB PO SCH (09:00)
[2019-12-21] MEDS ORDERED: OSELTAMIVIR PHOSPHATE SUSP 30 MG/5 ML UDP PO SCH (09:00)
[2019-12-21] MEDS ORDERED: EZETIMIBE 10 MG TABLET PO SCH (09:00)
[2019-12-21] MEDS ORDERED: CHOLECALCIFEROL 1,000 UNITS 25 MCG TAB PO SCH (09:00)
[2019-12-21] MEDS ORDERED: CALCIUM CARBONATE 1250MG TAB PO SCH (09:00)
--- NOTE | 2019-12-21 14:32 | Discharge Summary ---
Date of Service December 21, 2019 Admission HPI Per Admitting Provider This is a 69-year-old female with past medical history of primary hyperparathyroidism, diverticulosis, HLD, osteopenia, vitamin D deficiency who presents with acute onset of shortness of breath. She reports watching her great grandchildren in the past week because her daughter had to work and they are out of school due to the COVID-19 mitigation. Both of her 2 great grandchildren ages 4 and 8 tested positive for influenza this week as well. Her daughter has recently traveled from [facility], and was sent home from working here at [facility] earlier today as she spiked a fever. Pt reports that she has felt increased fatigue, myalgia, chills/shakes, intermittent cough since Monday but today progressively grew worse. She reports that she cannot catch her breath. Here in the ER patient had respiratory rate in the 40s upon arrival, now improved to the high 20s with 2 L O2 on at bedside. She also reports a very poor appetite, last time she really ate was on Monday. She has had difficulty keeping down liquids, tried earlier today, felt nauseous and vomited x1. She denies any recent travel herself. Patient denies any acute shortness of breath, chest tightness, chest pain. Her oral intake has been very poor recently. Patient found to be influenza B positive. Admission Exam Per Admitting Provider General: awake, alert, no apparent distress, + fatigued, + appears ill Head: Normocephalic, atraumatic ENT: PERRL, EOMI, no pharyngeal exudate, + mucous membranes dry Chest: On 2L via NC, + rhonchorous breath sounds bilateral bases, no wheeze Cardiac: Regular rate and rhythm, no murmur, no JVD, normal peripheral pulses, good capillary refill Abdominal: NABS x 4 quadrants, soft, nondistended, nontender to palpation, no rebound, guarding or tenderness Extremities: Normal inspection, no peripheral edema or erythema, calfs nontender to palpation Psych: Normal mood and affect Neuro: AAO x 3, no gross motor deficits, speech is clear, no peripheral sensory deficits Skin: no rash or erythema Principal Diagnosis Influenza B Discharge Exam Constitutional WD/WN, vitals as above Respiratory normal respiratory effort; no respiratory distress Auscultation: + diminished lung sounds Cardiovascular RRR, no murmur, no edema Skin no rashes, warm and dry Psychiatric A+Ox3, euthymic affect Discharge Data Allergies Allergy/AdvReac Type Severity Reaction Status Date / Time naproxen AdvReac Unknown disoriented Verified 12/20/19 17:01 Tlycjib-Kyg-Kpm Reductase AdvReac Unknown Muscle Verified 12/20/19 17:01 Inhibitor Aches Consultations 12/20/19 18:33 ED Decision to Admit Stat 12/20/19 20:32 Consult Case Management - Discharge Planning Routine Ordered Studies 12/20/19 17:09 CT angio chest PE protocol Stat 12/20/19 17:19 CT head/brain wo con Stat Hospital Course (1) Influenza B: Ms. Henry is a 69 year old female with a past medical history of hyperparathyroidism, hyperlipidemia, and Vitamin D deficiency/osteopenia who was admitted to [facility] due to acute respiratory distress secondary to Influenza B. Acute respiratory distress secondary to Influenza B - Serology +ve for Influenza B - CTA negative for PE and pneumonia - CT brain negative in ER - patient w/respiratory rate of 44 on presentation to the ER, appeared to be in resp distress -> improved greatly overnight, no longer requiring O2 at rest or with ambulation on day of discharge - Continue 5 days of Tamiflu, started in the ER - Seen by PT and OT - no needs identified - tolerating diet on day of d/c History of primary hyperparathyroidism: - 1 parathyroid gland removed approximately 5 years ago in [place] Hypercholesterolemia - Continue ezetimibe 10 mg daily Vitamin D deficiency/osteopenia - Continue continue supplementation with vitamin D/calcium Code status: DNR DVT prophylaxis: SCDs/patient ambulatory Disposition: discharged home (2) Acute respiratory distress: (3) History of primary hyperparathyroidism: (4) Hypercholesterolemia: (5) Vitamin D deficiency: (6) Osteopenia: (7) DVT prophylaxis: Total Time Total Time Spent Total Time Spent (In Minutes): <30 Discharge Plan Discharge Items Patient Disposition: Home - Self-Care Reason For Visit: INFLUENZA B, ACUTE RESPIRATORY DISTRESS Discharge Diagnosis: Influenza Condition on Discharge: Fair Activity: Resume your previous activity Non-emergency contact: Primary Care Provider Call non-emergency contact if: you have any medication questions, your symptoms worsen and you have a fever Follow-up/Referrals: Stephanie Garcia CRNP [Primary Care Provider] - (Please call your primary care provider to set up appointment.) Diet: Regular Addtl Attending Provider Instructions: Ms. Henry, you were admitted to [facility] due to difficulty breathing. You tested positive for Influenza. We started you on an anti-viral medication called Tamiflu, to hopefully shorten the duration of your illness. Please take the first dose this evening, and continue to take this twice a day (morning and evening) until your prescription is finished. If you don't feel like eating much, that's ok, but please continue to try and keep your fluid intake up, and slowly increase the amount you eat as you start to feel better. If you experience chest pain, shortness of breath, or have difficulty keeping food down, please seek medical attention. Pending Studies at Discharge: No Stand-Alone Forms: My [facility], Smoking Cessation Medications and DC Order Prescriptions: New oseltamivir 30 mg capsule 30 mg PO BID 4 Days Qty: 8 RF: 0 Continued ezetimibe 10 mg tablet 10 mg PO DAILY Qty: 90 RF: 3 calcium carbonate 600 mg calcium (1,500 mg) tablet 600 mg PO DAILY RF: 0 aspirin 81 mg tablet,delayed release (DR/EC) 81 mg PO DAILY Qty: 90 RF: 3 cholecalciferol (vitamin D3) 1,000 unit capsule 2,000 units PO DAILY Qty: 30 RF: 0 Discharge Orders: Discharge Order (Routine); Ordered 12/21/19 Ordered By: Adiel Avalos Admission Data Admit Date/Time: 12/20/19 18:55 Attending Provider: Avel Lorenzo Admit Provider: Avel Lorenzo Primary Care Provider: Stephanie Garcia Other Providers: Martin Garduno Other Interventions: Discharge Summary Assessment (RN) Last Done: 12/21/19 14:46 Supervising Physician Co-Signing Physician Notes I personally examined the patient and verified all jessica points of history and exam, discussed case, and agree with decision making with Dr Avalos. feeling better, breathing easier, less MCQUEEN. asked nursing to walk pt and check ambulatory pulse ox - did well. pt feels up to going home and would like to go home. ate OK. vitals noted nad heent nc at mmm lungs cta b/l no r/r/w good effort no accessory muscle use skin no rashes no pallor or icterus acute dyspnea/MCQUEEN and respiratory distress/GI distress from flu B present on admission - now stable for home. tamiflu, supportive care, outpt f/u Resident Activity Tracking Resident Involvement: Resident Care Provided Care Provided: Adult Hospital Medicine
--- NOTE | 2019-12-21 14:54 | Billing Data ---
Date of Service December 21, 2019 Coding Level of Care Code D/C Day Management <30 mins
[2019-12-21 15:10] VITALS: BP 102/61; PULSE 63; TEMP 98.2; O2SAT 97
[2019-12-21] MEDS ORDERED: OSELTAMIVIR PHOSPHATE 75 MG CAP PO SCH (21:00)
== END 2019-12-21 15:58 | disposition home or self-care (01) | DRG 195 ==
LOC: ED 15:41 → 2N 18:55

== ENCOUNTER 2023-12-28 16:41 | Inpatient (IN) ==
--- NOTE | 2023-12-28 16:49 | ED Triage Note ---
Date of Service December 28, 2023 Provider in Triage Author: Daina Villarreal History of Present Illness This patient was briefly evaluated while in triage. An abbreviated physical exam was performed. This patient is a 73-year-old Female who presents to the ED for evaluation Hx of asthma/RAD/allergies here with shortness of breath x 5 days, was sick with illness about 3 weeks ago seen at her doctor's office today (given a breathing treatment, rx prednisone and doxy) came here when she didn't feel any better Physical Exam GENERAL: anxious, hyperventilating, sat 100% on RA CARDIOVASCULAR: RRR RESPIRATORY: CTA ABDOMEN: BS x 4. Nontender to palpation. Initial orders for labs and / or imaging were placed and patient was placed in the waiting area until a bed is available. Please see further documentation for the full ED course.
--- NOTE | 2023-12-28 17:16 | XRay Report ---
TWO VIEW CHEST CLINICAL HISTORY: Dyspnea. FINDINGS: PA and lateral chest radiographs are compared to study dated 12/27/2023. The cardiomediastin al silhouette is unremarkable. The lungs and pleural spaces are clear. There is no pneumothorax. The skeletal structures are osteopenic. The bony thorax appears intact. There is a thoracolumbar scolios is. Arthritic change is seen in the shoulders. Cholecystectomy clips are noted in the right upper vincent drant. IMPRESSION: No active disease in the chest. ACT 112: Negative or not required by law. Electronically signed by: Tate Colón M.D. 12/28/2023 5:15 PM
[2023-12-28 17:19] LABS: Basophils # (auto) 0.06 K/uL (0.00-0.20); Basophils % (auto) 0.6 %; Eosinophils % (auto) 1.1 %; Hematocrit (blood only) 41.7 % (37.0-47.0); Hemoglobin 14.5 g/dl (12.0-16.0); Immature Granulocytes # (auto) 0.02 K/uL (0.01-0.20); Immature Granulocytes % (auto) 0.2 %; Lymphocytes # (auto) 2.85 K/uL (1.20-3.40); Lymphocytes % (auto) 30.6 %; Mean Corpuscular Hemoglobin 30.3 pg (25.0-34.0); Mean Corpuscular Hgb Conc 34.8 g/dL (32.0-36.0); Mean Corpuscular Volume 87.2 fL (80.0-100.0); Mean Platelet Volume 10.2 fL (9.4-12.4); Monocytes % (auto) 7.5 %; Neutrophils # (auto) 5.59 K/uL (1.40-6.50); Platelet Count 274 K/uL (130-400); RDW Coefficient of Variation 12.5 % (11.5-14.5); RDW Standard Deviation 39.9 fL (36.4-46.3); Red Blood Count 4.78 M/uL (4.20-5.40); White Blood Count 9.32 K/ul (4.8-10.8)
[2023-12-28 17:40] LABS: Albumin Globulin Ratio 1.3 (0.9-2); Albumin Level 4.7 gm/dl (3.4-5.0); BUN Creatinine Ratio 14.8 (10-20); Bilirubin,Total 0.6 mg/dl (0.2-1.0); Calcium 10.3 mg/dl (8.6-10.3); Creatinine Clr Calc Pharmacy 53.6 ml/min; Est GFR (African American) 82.9 ml/min; Est GFR (Non-African American) 71.5 ml/min; Globulin 3.6 gm/dl (2.5-4.0); Potassium 3.3 mmol/L (3.5-5.1); Total Protein 8.3 gm/dl (6.0-8.3)
[2023-12-28 17:44] LABS: Troponin I High Sensitivity 3.9 pg/ml (0-14)
[2023-12-28 17:48] LABS: Partial Thromboplastin Ratio 0.9; Partial Thromboplastin Time 26 Seconds (21-31)
[2023-12-28 18:05] LABS: Adenovirus PCR Not Detected (NotDetected); Bordetella parapertussis PCR Not Detected (NotDetected); Bordetella pertussis PCR Not Detected (NotDetected); Chlamydia pneumoniae PCR Not Detected (NotDetected); Coronavirus 229E PCR Not Detected (NotDetected); Coronavirus CoV-2 (COVID19)PCR Not Detected (NotDetected); Coronavirus HKU1 PCR Not Detected (NotDetected); Coronavirus NL63 PCR Not Detected (NotDetected); Coronavirus OC43PCR Not Detected (NotDetected); Human Metapneumovirus PCR Not Detected (NotDetected); Influenza A PCR Not Detected (NotDetected); Influenza B PCR Not Detected (NotDetected); Mycoplasma pneumoniae PCR Not Detected (NotDetected); Parainfluenza Virus 1 PCR Not Detected (NotDetected); Parainfluenza Virus 2 PCR Not Detected (NotDetected); Parainfluenza Virus 3 PCR Not Detected (NotDetected); Parainfluenza Virus 4 PCR Not Detected (NotDetected); Respiratory Syncytial VirusPCR Not Detected (NotDetected); Rhinovirus/Enterovirus PCR Not Detected (NotDetected)
--- NOTE | 2023-12-28 18:37 | Emergency Department Note ---
ED Provider Note History of Present Illness Chief Complaint: Shortness of Breath/Dyspnea Stated Complaint: SOB, REF BY DOC Time Seen by Provider: 12/28/23 18:16 This is a 73-year-old female with a history of asthma who presents to the emergency department with fast breathing. She states that about 5 days ago she developed a cough and increasing shortness of breath. She had a little bit of congestion at that time which seems to have resolved. She did not have a sore throat. She has been using her albuterol inhaler more frequently over the past few days which does seem to help her breathing. She also uses a control inhaler on a daily basis. She saw primary care today who treated her with doxycycline and prednisone and recommended that she be seen in the emergency department. She was given an albuterol treatment in the office and she states that ever since then her mouth has felt very dry. She admits that she has been trying to calm her breathing down but just does not seem to be able to persistently. She does not have any history of anxiety and does not feel anxious about anything right now. She has not had any leg pain or leg swelling. She does not have any persistent chest pain. Her fast breathing and shortness of breath is present at rest and with exertion. Denies any cardiac history. Follows with pulmonology for asthma. Denies any paresthesias. Home Medications Medication Instructions Recorded Confirmed Type aspirin 81 mg tablet,delayed 81 mg PO QAM 02/11/20 12/28/23 History release cholecalciferol (vitamin D3) 25 1,000 units PO QAM 05/04/20 12/28/23 History mcg (1,000 unit) capsule meclizine 25 mg tablet 25 mg PO TID PRN dizziness #30 tabs 03/16/23 12/28/23 Rx fluticasone furoate 100 1 inh inhalation DAILY #30 ea 10/06/23 12/28/23 Rx mcg/actuation blister powder for inhalation albuterol sulfate 90 mcg/actuation 2 inh inhalation QID PRN shortness 12/14/23 12/28/23 Rx aerosol inhaler (Ventolin HFA) of breath or wheezing #8.5 grams doxycycline hyclate 100 mg tablet 100 mg PO BID #20 tabs 12/28/23 12/28/23 Rx prednisone 20 mg tablet See Rx Instructions PO QAM #18 tabs 12/28/23 12/28/23 Rx Allergies Allergy/AdvReac Type Severity Reaction Status Date / Time pneumococcal vaccine Allergy Intermediate arm Verified 12/28/23 22:23 [From Prevvinicio 13 (PF)] swelling, other unknown reaction naproxen AdvReac Intermediate disoriented Verified 12/28/23 22:23 [id number] Reductase AdvReac Mild Muscle Verified 12/28/23 22:23 Inhibitor Aches [Joncjna-[id number]-Vha Reductase Inhibitor] Past Med/Surg History Medical History Acute respiratory distress Influenza B History of primary hyperparathyroidism Diverticulosis Environmental allergies Hypercholesterolemia Internal hemorrhoids Osteopenia Uterine prolapse Vitamin D deficiency Surgical History S/P wisdom tooth extraction S/P laparoscopic cholecystectomy S/P tubal ligation History of parathyroid surgery History of knee replacement right History of tonsillectomy History of adenoidectomy History of colonoscopy Family History Father Diabetes Brother Diabetes Denies family history of Ovarian cancer Prostate cancer Myocardial infarction Breast cancer Colorectal cancer Uterine cancer Social History Smoking Status: Never smoker Second Hand Exposure: Yes; Do You Dip or Chew Tobacco: No; Hx Alcohol Use: No Hx Substance Use: No Preferred Language: Greek Communication Ability: Effective Visual Impairment: No Limitations Hearing Ability: Normal Potato Chip Sorter Required: No Beliefs That Will Affect Care: None marital status: Current Living Situation: Spouse current occupational status: retired current occupation: retired from career with [employer] as [employer] Feels Safe at Home: Yes Childhood Exposure to Second-Hand Smoke: Yes Diet: regular caffeine: Yes Dental Care, Regularly: No Physical Activity Frequency: Daily Seatbelt Use: always Sunscreen Use: Yes Assistive Devices: Oxygen - Continuous Physical Exam Vital Signs Vital Signs - 24 hr 12/28/23 16:47 12/28/23 18:20 12/28/23 18:20 Temperature 98.4 F Temperature Source Temporal Artery Scan Pulse Rate 85 Pulse Rate [Apical] 83 Pulse Rhythm Regular Pulse Rhythm [Apical] Regular Pulse Strength Normal Pulse Strength [Apical] Normal Respiratory Rate 30 H 28 H Respiratory Effort / Characteristics Non-Labored Spontaneous Spontaneous Accessory Muscle Use Short of Breath Respiratory Depth Normal Shallow Respiratory Pattern Tachypnea Blood Pressure 157/101 H Blood Pressure [Right Arm] 144/102 H Blood Pressure Mean 119 Blood Pressure Mean [Right Arm] 116 Blood Pressure Position Sitting Blood Pressure Position [Right Arm] Sitting Pulse Oximetry 100 100 100 Oxygen Delivery Method Room Air Room Air Room Air Sepsis Recent Fever Within 48 Hours No Sepsis New/Unexplained Change in Mental Status N/A Sepsis Action Taken by Nursing No Action Required 12/28/23 18:20 12/28/23 18:31 12/28/23 19:30 Temperature Temperature Source Pulse Rate 79 79 Pulse Rate [Apical] 81 Pulse Rhythm Regular Pulse Rhythm [Apical] Pulse Strength Pulse Strength [Apical] Respiratory Rate 28 H 22 Respiratory Effort / Characteristics Labored Respiratory Depth Normal Respiratory Pattern Blood Pressure Blood Pressure [Right Arm] 136/74 Blood Pressure Mean Blood Pressure Mean [Right Arm] 94 Blood Pressure Position Blood Pressure Position [Right Arm] Semi-fowlers Pulse Oximetry 100 98 Oxygen Delivery Method Room Air Room Air Sepsis Recent Fever Within 48 Hours Sepsis New/Unexplained Change in Mental Status Sepsis Action Taken by Nursing 12/28/23 22:00 12/28/23 22:31 Temperature Temperature Source Pulse Rate 80 Pulse Rate [Apical] 64 Pulse Rhythm Pulse Rhythm [Apical] Pulse Strength Pulse Strength [Apical] Respiratory Rate 24 Respiratory Effort / Characteristics Non-Labored Spontaneous Respiratory Depth Normal Respiratory Pattern Regular Blood Pressure Blood Pressure [Right Arm] 101/77 Blood Pressure Mean Blood Pressure Mean [Right Arm] 85 Blood Pressure Position Blood Pressure Position [Right Arm] Semi-fowlers Pulse Oximetry 99 Oxygen Delivery Method Room Air Sepsis Recent Fever Within 48 Hours Sepsis New/Unexplained Change in Mental Status Sepsis Action Taken by Nursing CONSTITUTIONAL: Well developed, well nourished, anxious appearing, somewhat distressed, tachypneic EYES: conjunctivae normal, extraocular muscles intact. ENMT: External ears normal. Nose with normal external appearance, no congestion. Oral mucous membranes dry. Oropharynx otherwise normal NECK: Full active range of motion. No JVD RESPIRATORY: Patient is tachypneic. There are no audible wheezes. She is moving air well. She is able to calm her breathing down for brief periods for auscultation however starts back up with tachypnea. Lungs are clear to auscultation bilaterally with no wheezes rales or rhonchi. No absent breath sounds. CARDIOVASCULAR: Regular rate and rhythm. No murmurs, rubs, or gallops. ABDOMEN: Normal bowel sounds. Soft, nontender, no peritonitis. No masses. MUSCULOSKELETAL: Moves all extremities at all joints without pain or difficulty. No edema in bilateral lower extremities. SKIN: [place], warm, dry. NEUROLOGIC: Awake, alert, oriented. No focal deficits. Course Administered Medications Discontinued Medications Dexamethasone Sodium Phosphate (DexamethasonePf 10 Mg/Ml Vial) 10 mg IV NOW ONE Stop: 12/28/23 21:11 Last Admin: 12/28/23 21:17 Dose: 10 mg Documented By: MIKAELA Sodium Chloride (Nss) 500 mls @ 999 mls/hr IV .Q31M ONE Stop: 12/28/23 20:22 Last Infusion: 12/28/23 20:43 Dose: Infused Documented By: Admin: 12/28/23 20:01 Dose: 999 mls/hr Documented By: MIKAELA Ioversol (Optiray 320 125ml) 118 ml IV ONCE ONE Stop: 12/28/23 19:20 Last Admin: 12/28/23 19:20 Dose: 118 ml Documented By: THOMAS Levalbuterol HCl (Levalbuterol 1.25 Mg/3 Ml Neb) 1.25 mg NEB NOW STA Stop: 12/28/23 21:47 Last Admin: 12/28/23 22:00 Dose: 1.25 mg Documented By: MIKAELA Medical Decision Making Differential Diagnosis Hyperventilation, asthma exacerbation, upper respiratory infection, bronchitis, pneumothorax, pulmonary embolism, ACS, CHF, foreign body, acidosis, anxiety, electrolyte imbalance, dehydration, among other pathology Laboratory Data 12/28/23 17:02 12/28/23 17:02 Lab Results 12/28/23 12/28/23 12/28/23 Range/Units 16:52 17:02 18:59 WBC 9.32 (4.8-10.8) K/ul RBC 4.78 (4.20-5.40) M/uL Hgb 14.5 (12.0-16.0) g/dl Hct 41.7 (37.0-47.0) % MCV 87.2 (80.0-100.0) fL MCH 30.3 (25.0-34.0) pg MCHC 34.8 (32.0-36.0) g/dL RDW Std Deviation 39.9 (36.4-46.3) fL RDW Coeff of Koko 12.5 (11.5-14.5) % Plt Count 274 (130-400) K/uL MPV 10.2 (9.4-12.4) fL Immature Gran % (Auto) 0.2 % Neut % (Auto) 60.0 % Lymph % (Auto) 30.6 % [place] % (Auto) 7.5 % Eos % (Auto) 1.1 % Baso % (Auto) 0.6 % Neut # (Auto) 5.59 (1.40-6.50) K/uL Lymph # (Auto) 2.85 (1.20-3.40) K/uL [place] # (Auto) 0.70 H (0.11-0.59) K/uL Eos # (Auto) 0.10 (0.00-0.50) K/uL Baso # (Auto) 0.06 (0.00-0.20) K/uL Immature Gran # (Auto) 0.02 (0.01-0.20) K/uL PT 11.0 (9.0-12.0) Seconds INR 1.0 (0.9-1.1) APTT 26 (21-31) Seconds PTT Ratio 0.9 D-Dimer 530 H* (0-500) ug/L FEU Sodium 139 (136-145) mmol/L Potassium 3.3 L (3.5-5.1) mmol/L Chloride 104 (98-107) mmol/L Carbon Dioxide 24 (21-32) mmol/L Anion Gap 11 (3-11) BUN 12 (6-23) mg/dl Creatinine 0.81 (0.6-1.2) mg/dl Est Cr Clr Drug Dosing 53.6 ml/min Est GFR ( Amer) 82.9 ml/min Est GFR (Non-Af Amer) 71.5 ml/min BUN/Creatinine Ratio 14.8 (10-20) Glucose 97 (70-99(Fasting)) mg/dl Calcium 10.3 (8.6-10.3) mg/dl Total Bilirubin 0.6 (0.2-1.0) mg/dl AST 31 (13-39) U/L ALT 25 (7-52) U/L Alkaline Phosphatase 53 (34-104) U/L Troponin I High Sens 3.9 (0-14) pg/ml B-Natriuretic Peptide 32 (0-100) pg/ml Total Protein 8.3 (6.0-8.3) gm/dl Albumin 4.7 (3.4-5.0) gm/dl Globulin 3.6 (2.5-4.0) gm/dl Albumin/Globulin Ratio 1.3 (0.9-2) Urine Color Urine Appearance (Clear) Urine pH (4.5-7.5) Ur Specific [place] (1.000-1.030) Urine Protein (Negative) Urine Glucose (UA) (Negative) Urine Ketones (Negative) Urine Blood (Negative) Urine Nitrite (Negative) Urine Bilirubin (Negative) Urine Urobilinogen (Negative) Ur Leukocyte Esterase (Negative) Urine WBC (Auto) (0-5) /hpf Urine RBC (Auto) (0-4) /hpf U Hyaline Cast (Auto) (0-5) /lpf U Epithel Cells (Auto) (0-5) /lpf Urine Bacteria (Auto) (Negative) Adenovirus (PCR) Not Detected (NotDetected) B. pertussis DNA (PCR) Not Detected (NotDetected) B.parapertussis DNA PCR Not Detected (NotDetected) C. pneumoniae DNA (PCR) Not Detected (NotDetected) Coronavirus OC43 (PCR) Not Detected (NotDetected) Coronavirus HKU1 (PCR) Not Detected (NotDetected) Coronavirus 229E (PCR) Not Detected (NotDetected) SARS-CoV-2 (PCR) Not Detected (NotDetected) Coronavirus NL63 (PCR) Not Detected (NotDetected) Human Metapneumovir PCR Not Detected (NotDetected) Influenza Type A (PCR) Not Detected (NotDetected) Influenza Type B (PCR) Not Detected (NotDetected) M. pneumoniae (PCR) Not Detected (NotDetected) Parainfluenza 1 (PCR) Not Detected (NotDetected) Parainfluenza 2 (PCR) Not Detected (NotDetected) Parainfluenza 3 (PCR) Not Detected (NotDetected) Parainfluenza 4 (PCR) Not Detected (NotDetected) RSV (PCR) Not Detected (NotDetected) Entero/Rhino (PCR) Not Detected (NotDetected) 12/28/23 Range/Units 20:19 WBC (4.8-10.8) K/ul RBC (4.20-5.40) M/uL Hgb (12.0-16.0) g/dl Hct (37.0-47.0) % MCV (80.0-100.0) fL MCH (25.0-34.0) pg MCHC (32.0-36.0) g/dL RDW Std Deviation (36.4-46.3) fL RDW Coeff of Koko (11.5-14.5) % Plt Count (130-400) K/uL MPV (9.4-12.4) fL Immature Gran % (Auto) % Neut % (Auto) % Lymph % (Auto) % [place] % (Auto) % Eos % (Auto) % Baso % (Auto) % Neut # (Auto) (1.40-6.50) K/uL Lymph # (Auto) (1.20-3.40) K/uL [place] # (Auto) (0.11-0.59) K/uL Eos # (Auto) (0.00-0.50) K/uL Baso # (Auto) (0.00-0.20) K/uL Immature Gran # (Auto) (0.01-0.20) K/uL PT (9.0-12.0) Seconds INR (0.9-1.1) APTT (21-31) Seconds PTT Ratio D-Dimer (0-500) ug/L FEU Sodium (136-145) mmol/L Potassium (3.5-5.1) mmol/L Chloride (98-107) mmol/L Carbon Dioxide (21-32) mmol/L Anion Gap (3-11) BUN (6-23) mg/dl Creatinine (0.6-1.2) mg/dl Est Cr Clr Drug Dosing ml/min Est GFR ( Amer) ml/min Est GFR (Non-Af Amer) ml/min BUN/Creatinine Ratio (10-20) Glucose (70-99(Fasting)) mg/dl Calcium (8.6-10.3) mg/dl Total Bilirubin (0.2-1.0) mg/dl AST (13-39) U/L ALT (7-52) U/L Alkaline Phosphatase (34-104) U/L Troponin I High Sens (0-14) pg/ml B-Natriuretic Peptide (0-100) pg/ml Total Protein (6.0-8.3) gm/dl Albumin (3.4-5.0) gm/dl Globulin (2.5-4.0) gm/dl Albumin/Globulin Ratio (0.9-2) Urine Color Yellow Urine Appearance Clear (Clear) Urine pH 8.5 H (4.5-7.5) Ur Specific [place] 1.025 (1.000-1.030) Urine Protein Negative (Negative) Urine Glucose (UA) Negative (Negative) Urine Ketones Negative (Negative) Urine Blood Trace H (Negative) Urine Nitrite Negative (Negative) Urine Bilirubin Negative (Negative) Urine Urobilinogen Negative (Negative) Ur Leukocyte Esterase Trace H (Negative) Urine WBC (Auto) 1-5 (0-5) /hpf Urine RBC (Auto) 0-4 (0-4) /hpf U Hyaline Cast (Auto) 0 (0-5) /lpf U Epithel Cells (Auto) 10-20 H (0-5) /lpf Urine Bacteria (Auto) Negative (Negative) Adenovirus (PCR) (NotDetected) B. pertussis DNA (PCR) (NotDetected) B.parapertussis DNA PCR (NotDetected) C. pneumoniae DNA (PCR) (NotDetected) Coronavirus OC43 (PCR) (NotDetected) Coronavirus HKU1 (PCR) (NotDetected) Coronavirus 229E (PCR) (NotDetected) SARS-CoV-2 (PCR) (NotDetected) Coronavirus NL63 (PCR) (NotDetected) Human Metapneumovir PCR (NotDetected) Influenza Type A (PCR) (NotDetected) Influenza Type B (PCR) (NotDetected) M. pneumoniae (PCR) (NotDetected) Parainfluenza 1 (PCR) (NotDetected) Parainfluenza 2 (PCR) (NotDetected) Parainfluenza 3 (PCR) (NotDetected) Parainfluenza 4 (PCR) (NotDetected) RSV (PCR) (NotDetected) Entero/Rhino (PCR) (NotDetected) Imaging Data Radiologist's Impression: Chest X-Ray 12/28/23 16:49 TWO VIEW CHEST CLINICAL HISTORY: Dyspnea. FINDINGS: PA and lateral chest radiographs are compared to study dated 12/27/2023. The cardiomediastinal silhouette is unremarkable. The lungs and pleural spaces are clear. There is no pneumothorax. The skeletal structures are osteopenic. The bony thorax appears intact. There is a thoracolumbar scoliosis. Arthritic change is seen in the shoulders. Cholecystectomy clips are noted in the right upper quadrant. IMPRESSION: No active disease in the chest. ACT 112: Negative or not required by law. Electronically signed by: Tate Colón M.D. 12/28/2023 5:15 PM Chest CTA 12/28/23 18:52 Exam(s): CTA CHEST IV Amt: 118 ml optiray 320 EXAM: CT Angiography Chest With Intravenous Contrast CLINICAL HISTORY: Dyspnea. TECHNIQUE: Axial computed tomographic angiography images of the chest with intravenous contrast. MIPS images were created and reviewed. CTDI is 29. 25 mGy and DLP is 650.94 mGy-cm. Automated exposure control was utilized for the study. A dose lowering technique was utilized adhering to the principles of ALARA. MIP reconstructed images were created and reviewed. COMPARISON: CTA chest 02/11/2020 FINDINGS: Pulmonary arteries: Unremarkable. No pulmonary embolus. Aorta: Minimal atherosclerosis. No thoracic aortic aneurysm. Lungs: Interseptal thickening could relate to atelectasis and/or pulmonary edema. No mass. Pleural space: Unremarkable. No significant effusion. No pneumothorax. Heart: Unremarkable. No cardiomegaly. No significant pericardial effusion. No evidence of RV dysfunction. Bones/joints: There are degenerative changes of the spine. No acute fracture. Soft tissues: Unremarkable. Lymph nodes: Unremarkable. No enlarged lymph nodes. IMPRESSION: 1. No pulmonary embolus. 2. Interseptal thickening could relate to atelectasis and/or pulmonary edema. Electronically signed by: Sonia London MD 12/28/23 20:35 PM ECG Data Attestation: I personally reviewed and interpreted this ECG as follows: (Sinus rhythm with a rate of 81. Intervals within normal limits. Normal axis. No acute ST elevation. No evidence of ischemia.) SHAHRAM Narrative 73-year-old female with a history of asthma presents to the emergency department with fast breathing, dyspnea, and cough over the past 4 to 5 days. She had some sinus congestion when symptoms began but nothing persistent. Has been using her albuterol inhaler more. Saw primary care today who recommended that she be seen in the emergency department. On exam, patient is tachypneic. She is barely able to slow her breathing down for auscultation briefly but then becomes tachypneic again. She appears somewhat distressed. Her oxygen saturation is 100% on room air. She is not tachycardic. Blood pressure minimally elevated but nothing significant. She has no lower extremity edema. No rails concerning for fluid overload. She has no history of CHF. Oral mucous membranes are dry. Gentle IV fluids were administered. Patient was initially evaluated in triage. Labs and EKG had been ordered. Dose of dexamethasone was administered as she had not started the steroids that were prescribed today by primary care. EKG unremarkable. Chest x-ray clear Labs: No leukocytosis or anemia. No thrombocytopenia. Coags are normal. D- dimer slightly elevated at 530. Mild hypokalemia at 3.3. Renal function normal. No transaminitis. Troponin normal. BNP normal at 32. Urine with trace blood and leukocyte esterase with 10-20 epithelial cells, low suspicion for UTI. [employer] upper respiratory panel is negative. Due to elevated D-dimer with persistent tachypnea, CT of the chest was obtained to evaluate for pulmonary embolism. This is negative for PE, however demonstrates interseptal thickening possibly atelectasis versus pulmonary edema. Patient's tachypnea did not improve, in fact she developed expiratory wheezes so a leave albuterol nebulizer was ordered. Her respiratory rate remained in the high 20s to low 30s. I called and spoke with Dr. Chavez with pulmonology regarding the patient's history, exam, and workup in the emergency department. He does not think the patient needs to be diuresed given normal BNP. Recommends admitting the patient and treat with steroids, bronchodilators, treat as an asthma exacerbation. Patient's granddaughter at bedside for reevaluation and recommendations for admission. They are both in agreement with this plan. Patient will be admitted under Dr. Padilla with [facility] hospitalist group Case reviewed several times with ED attending Dr. Bernstein who is agreeable with this plan. Impression Asthma exacerbation, Tachypnea Discharge Plan Visit Data Chief Complaint: Shortness of Breath/Dyspnea Stated Complaint: SOB, REF BY DOC ED Provider: Vasquez Bernstein ED Midlevel Provider: Pepe Stokes Discharge Problem: Asthma exacerbation, Tachypnea Patient Disposition: Admitted As Inpatient Condition: Fair Forms Stand Alone Forms: My [facility] Prescriptions Prescriptions: No Action fluticasone furoate 100 mcg/actuation blister with device 1 inh inhalation DAILY Qty: 30 11RF albuterol sulfate [Ventolin HFA] 90 mcg/actuation HFA aerosol inhaler 2 inh INH QID PRN (Reason: shortness of breath or wheezing) Qty: 8.5 4RF cholecalciferol (vitamin D3) 25 mcg (1,000 unit) capsule 1,000 units PO QAM meclizine 25 mg tablet 25 mg PO TID PRN (Reason: dizziness) Qty: 30 2RF doxycycline hyclate 100 mg tablet 100 mg PO BID Qty: 20 0RF Rx Instructions: 12/28/23 PER PT : THIS MED NOT STARTED YET. prednisone 20 mg tablet See Rx Instructions PO QAM Qty: 18 0RF Rx Instructions: Take 3 tablets daily x 3 days, 2 tablets daily x 3 days, 1 tablet daily x 3 days, then stop PO QAM; 12/28/23 PER PT : THIS MED NOT STARTED YET. aspirin 81 mg tablet,delayed release (/EC) 81 mg PO QAM Referrals Referrals: Stephanie Castro CRNP [Primary Care Provider] - Discharge Problem: Asthma exacerbation Qualifiers: Asthma severity: unspecified severity Asthma persistence: unspecified Qualified Code(s): J45.901 - Unspecified asthma with (acute) exacerbation
[2023-12-28 18:38] LABS: D Dimer 530 ug/L FEU (0-500)
[2023-12-28] MEDS: OPTIRAY 320 125ml IV ONE (19:20)
[2023-12-28] MEDS: SODIUM CHLORIDE 0.9% 500 ML IV ONE (20:01)
--- NOTE | 2023-12-28 20:36 | CT Scan Report ---
Exam(s): CTA CHEST IV Amt: 118 ml optiray 320 EXAM: CT Angiography Chest With Intravenous Contrast CLINICAL HISTORY: Dyspnea. TECHNIQUE: Axial computed tomographic angiography images of the chest with intravenous contrast. MIPS images were created and reviewed. CTDI is 29. 25 mGy and DLP is 650.94 mGy-cm. Automated exposure control was utilized for the study. A dose lowering technique was utilized adhering to the principles of ALARA. MIP reconstructed images were created and reviewed. COMPARISON: CTA chest 02/11/2020 FINDINGS: Pulmonary arteries: Unremarkable. No pulmonary embolus. Aorta: Minimal atherosclerosis. No thoracic aortic aneurysm. Lungs: Interseptal thickening could relate to atelectasis and/or pulmonary edema. No mass. Pleural space: Unremarkable. No significant effusion. No pneumothorax. Heart: Unremarkable. No cardiomegaly. No significant pericardial effusion. No evidence of RV dysfunction. Bones/joints: There are degenerative changes of the spine. No acute fracture. Soft tissues: Unremarkable. Lymph nodes: Unremarkable. No enlarged lymph nodes. IMPRESSION: 1. No pulmonary embolus. 2. Interseptal thickening could relate to atelectasis and/or pulmonary edema. Electronically signed by: Sonia London MD 12/28/23 20:35 PM
[2023-12-28 20:43] LABS: Appearance Urine Clear (Clear); Bacteria Urine Automated Negative (Negative); Bilirubin Urine Negative (Negative); Blood Urine Trace (Negative); Cast Urine Automated 0 /lpf (0-5); Color Urine Yellow; Glucose Urine UA Negative (Negative); Ketones Urine Negative (Negative); Leukocyte Esterase Urine Trace (Negative); Nitrite Urine Negative (Negative); Protein Urine Negative (Negative); RBC Urine Automated 0-4 /hpf (0-4); Specific Gravity Urine 1.025 (1.000-1.030); Urobilinogen Urine Negative (Negative); pH Urine 8.5 (4.5-7.5)
[2023-12-28] MEDS: dexAMETHasone**PF** 10 MG/ML VIAL IV ONE (21:17)
[2023-12-28] MEDS: LEVALBUTEROL 1.25 MG/3 ML NEB NEB STA (22:00)
--- NOTE | 2023-12-28 22:21 | History & Physical Report ---
Date of Service December 28, 2023 Assessment & Plan (1) Asthma exacerbation: Plan Asthma exacerbation- Respiratory BioFire test negative, chest x-ray negative, CT angiography of chest negative for PE D-dimer mildly elevated at 530 Received dexamethasone 10 mg IV, normal saline 500 mL bolus, and Xopenex nebulizer treatment with reported improvement in symptoms from the ED Methylprednisolone 40 mg IV every 12 hours Duonebs every 4 hours while awake and every 2 hours when necessary. Guaifenesin extended release 600 mg p.o. every 12 hours Nasal cannula oxygen, titrate to keep pulse ox 92-94% Azithromycin 500 mg IV daily History of Present Illness Chief Complaint: The patient was advised to come to the emergency department by family, after they found that if she was having shortness of breath, cough and dyspnea on exertion worsening over the past 5 days, with more acute worsening today. She did see her outpatient physician today, was treated with doxycycline and prednisone, and when she continue to worsen, was advised to come to the ED for assessment Primary Care Provider: DENYS Charles The patient is a 73-year-old female with a past medical history including asthma, bilateral carpal tunnel syndrome, vertigo, uterine prolapse, environmental allergies, hypercholesterolemia, history of primary hyperparathyroidism and nonalcoholic steatohepatitis. Patient presents to the emergency department with 5 days of worsening cough, shortness of breath and dyspnea on exertion. She did notice some improvement with nebulizer treatment while in the ED, and was referred for evaluation for admission. Allergies Allergy/AdvReac Type Severity Reaction Status Date / Time pneumococcal vaccine Allergy Intermediate arm Verified 12/28/23 22:23 [From Prevnar 13 (PF)] swelling, other unknown reaction naproxen AdvReac Intermediate disoriented Verified 12/28/23 22:23 Nzolqmp-SCC-MkL Reductase AdvReac Mild Muscle Verified 12/28/23 22:23 Inhibitor Aches [Yztatag-Drz-Jms Reductase Inhibitor] Home Medications Medication Instructions Recorded Confirmed Type aspirin 81 mg tablet,delayed 81 mg PO QAM 02/11/20 12/28/23 History release cholecalciferol (vitamin D3) 25 1,000 units PO QAM 05/04/20 12/28/23 History mcg (1,000 unit) capsule meclizine 25 mg tablet 25 mg PO TID PRN dizziness #30 tabs 03/16/23 12/28/23 Rx fluticasone furoate 100 1 inh inhalation DAILY #30 ea 10/06/23 12/28/23 Rx mcg/actuation blister powder for inhalation albuterol sulfate 90 mcg/actuation 2 inh inhalation QID PRN shortness 12/14/23 12/28/23 Rx aerosol inhaler (Ventolin HFA) of breath or wheezing #8.5 grams doxycycline hyclate 100 mg tablet 100 mg PO BID #20 tabs 12/28/23 12/28/23 Rx prednisone 20 mg tablet See Rx Instructions PO QAM #18 tabs 12/28/23 12/28/23 Rx Past Med/Surg History Medical History Acute respiratory distress Influenza B History of primary hyperparathyroidism Diverticulosis Environmental allergies Hypercholesterolemia Internal hemorrhoids Osteopenia Uterine prolapse Vitamin D deficiency Surgical History S/P wisdom tooth extraction S/P laparoscopic cholecystectomy S/P tubal ligation History of parathyroid surgery History of knee replacement right History of tonsillectomy History of adenoidectomy History of colonoscopy Family History Father Diabetes Brother Diabetes Denies family history of Ovarian cancer Prostate cancer Myocardial infarction Breast cancer Colorectal cancer Uterine cancer Social History Smoking Status: Never smoker Second Hand Exposure: No; Do You Dip or Chew Tobacco: No; Hx Alcohol Use: No Hx Substance Use: No Preferred Language: Estonian Communication Ability: Effective Visual Impairment: No Limitations Hearing Ability: Normal Code Machine Operator Required: No Beliefs That Will Affect Care: None marital status: Current Living Situation: Spouse current occupational status: retired current occupation: retired from career with [employer] as [employer] Other Information That Helps Us Care for You: No Feels Safe at Home: Yes Safety Concerns: Feels Safe At This Time Childhood Exposure to Second-Hand Smoke: Yes Diet: regular caffeine: Yes Dental Care, Regularly: No Physical Activity Frequency: Daily Seatbelt Use: always Sunscreen Use: Yes Assistive Devices: Denture - Upper and Denture - Lower Review of Systems Review of Systems: The patient denies chest pain, palpitations, lower extremity swelling, sore throat, fevers, chills, sweats, nausea, vomiting, diarrhea , constipation, abdominal pain, pelvic pain, blood in urine or stool, dysuria, urinary frequency or urgency, lightheadedness, dizziness, headache, memory loss, loss of consciousness, rash, abnormal bruising or bleeding, imbalance, focal weakness, numbness or tingling in arms or legs, generalized arthralgias or myalgias, back or neck pain, or night sweats. The review of systems is otherwise negative other than for that already noted above, and at least 10 systems have been reviewed. Physical Exam Physical Exam: The patient is awake, alert and oriented 3, well developed and well nourished, normocephalic and atraumatic, lying in bed and is presently receiving a nebulizer treatment HEENT--PERRL, EOMI, mucous membranes and oropharynx dry. Neck--supple. No JVD. No bruits. Thyroid normal, trachea midline, no adenopathy. Heart--normal S1 and S2. No murmurs, rubs or gallops. Lungs--coarse breath sounds with wheezes left greater than right. No respiratory distress, no accessory muscle use. Abdomen--normal bowel sounds and soft. Nontender. Nondistended, no hernias or masses, no organomegaly. Extremities--no cyanosis or clubbing. No edema. Dermatologic--normal skin turgor, normal color, no abnormal lymph nodes, no rash. Neurologic--cranial nerves II through XII grossly intact. Rheumatologic--normal range of motion. Psychiatric--normal affect. Results & Data Results & Data Vital Signs (Past 12 Hours) Vital Signs Temp Pulse Pulse Resp BP BP Pulse Ox 12/28/23 22:00 64 24 101/77 99 12/28/23 19:30 81 22 136/74 98 12/28/23 18:31 79 12/28/23 18:20 79 28 H 100 12/28/23 18:20 83 28 H 144/102 H 100 12/28/23 18:20 100 12/28/23 16:47 36.9 C 85 30 H 157/101 H 100 O2 Del Method 12/28/23 22:00 Room Air 12/28/23 19:30 Room Air 12/28/23 18:31 12/28/23 18:20 Room Air 12/28/23 18:20 Room Air 12/28/23 18:20 Room Air 12/28/23 16:47 Room Air Laboratory Results Laboratory Results WBC 9.32 K/ul (4.8-10.8) 12/28/23 17:02 RBC 4.78 M/uL (4.20-5.40) 12/28/23 17:02 Hgb 14.5 g/dl (12.0-16.0) 12/28/23 17:02 Hct 41.7 % (37.0-47.0) 12/28/23 17:02 MCV 87.2 fL (80.0-100.0) 12/28/23 17:02 MCH 30.3 pg (25.0-34.0) 12/28/23 17:02 MCHC 34.8 g/dL (32.0-36.0) 12/28/23 17:02 RDW Std Deviation 39.9 fL (36.4-46.3) 12/28/23 17:02 RDW Coeff of Koko 12.5 % (11.5-14.5) 12/28/23 17:02 Plt Count 274 K/uL (130-400) 12/28/23 17:02 MPV 10.2 fL (9.4-12.4) 12/28/23 17:02 Immature Gran % (Auto) 0.2 % 12/28/23 17:02 Neut % (Auto) 60.0 % 12/28/23 17:02 Lymph % (Auto) 30.6 % 12/28/23 17:02 Tillman % (Auto) 7.5 % 12/28/23 17:02 Eos % (Auto) 1.1 % 12/28/23 17:02 Baso % (Auto) 0.6 % 12/28/23 17:02 Neut # (Auto) 5.59 K/uL (1.40-6.50) 12/28/23 17:02 Lymph # (Auto) 2.85 K/uL (1.20-3.40) 12/28/23 17:02 Tillman # (Auto) 0.70 K/uL (0.11-0.59) H 12/28/23 17:02 Eos # (Auto) 0.10 K/uL (0.00-0.50) 12/28/23 17:02 Baso # (Auto) 0.06 K/uL (0.00-0.20) 12/28/23 17:02 Immature Gran # (Auto) 0.02 K/uL (0.01-0.20) 12/28/23 17:02 PT 11.0 Seconds (9.0-12.0) 12/28/23 17:02 INR 1.0 (0.9-1.1) 12/28/23 17:02 APTT 26 Seconds (21-31) 12/28/23 17:02 PTT Ratio 0.9 12/28/23 17:02 D-Dimer 530 ug/L FEU (0-500) H* 12/28/23 17:02 Sodium 139 mmol/L (136-145) 12/28/23 17:02 Potassium 3.3 mmol/L (3.5-5.1) L 12/28/23 17:02 Chloride 104 mmol/L (98-107) 12/28/23 17:02 Carbon Dioxide 24 mmol/L (21-32) 12/28/23 17:02 Anion Gap 11 (3-11) 12/28/23 17:02 BUN 12 mg/dl (6-23) 12/28/23 17:02 Creatinine 0.81 mg/dl (0.6-1.2) 12/28/23 17:02 Est Cr Clr Drug Dosing 53.6 ml/min 12/28/23 17:02 Est GFR ( Amer) 82.9 ml/min 12/28/23 17:02 Est GFR (Non-Af Amer) 71.5 ml/min 12/28/23 17:02 BUN/Creatinine Ratio 14.8 (10-20) 12/28/23 17:02 Glucose 97 mg/dl (70-99(Fasting)) 12/28/23 17:02 Calcium 10.3 mg/dl (8.6-10.3) 12/28/23 17:02 Total Bilirubin 0.6 mg/dl (0.2-1.0) 12/28/23 17:02 AST 31 U/L (13-39) 12/28/23 17:02 ALT 25 U/L (7-52) 12/28/23 17:02 Alkaline Phosphatase 53 U/L (34-104) 12/28/23 17:02 Troponin I High Sens 3.9 pg/ml (0-14) 12/28/23 17:02 B-Natriuretic Peptide 32 pg/ml (0-100) 12/28/23 18:59 Total Protein 8.3 gm/dl (6.0-8.3) 12/28/23 17:02 Albumin 4.7 gm/dl (3.4-5.0) 12/28/23 17:02 Globulin 3.6 gm/dl (2.5-4.0) 12/28/23 17:02 Albumin/Globulin Ratio 1.3 (0.9-2) 12/28/23 17:02 Urine Color Yellow 12/28/23 20:19 Urine Appearance Clear (Clear) 12/28/23 20:19 Urine pH 8.5 (4.5-7.5) H 12/28/23 20:19 Ur Specific [place] 1.025 (1.000-1.030) 12/28/23 20:19 Urine Protein Negative (Negative) 12/28/23 20:19 Urine Glucose (UA) Negative (Negative) 12/28/23 20:19 Urine Ketones Negative (Negative) 12/28/23 20:19 Urine Blood Trace (Negative) H 12/28/23 20:19 Urine Nitrite Negative (Negative) 12/28/23 20:19 Urine Bilirubin Negative (Negative) 12/28/23 20:19 Urine Urobilinogen Negative (Negative) 12/28/23 20:19 Ur Leukocyte Esterase Trace (Negative) H 12/28/23 20:19 Urine WBC (Auto) 1-5 /hpf (0-5) 12/28/23 20:19 Urine RBC (Auto) 0-4 /hpf (0-4) 12/28/23 20:19 U Hyaline Cast (Auto) 0 /lpf (0-5) 12/28/23 20:19 U Epithel Cells (Auto) 10-20 /lpf (0-5) H 12/28/23 20:19 Urine Bacteria (Auto) Negative (Negative) 12/28/23 20:19 Adenovirus (PCR) Not Detected (NotDetected) 12/28/23 16:52 B. pertussis DNA (PCR) Not Detected (NotDetected) 12/28/23 16:52 B.parapertussis DNA PCR Not Detected (NotDetected) 12/28/23 16:52 C. pneumoniae DNA (PCR) Not Detected (NotDetected) 12/28/23 16:52 Coronavirus OC43 (PCR) Not Detected (NotDetected) 12/28/23 16:52 Coronavirus HKU1 (PCR) Not Detected (NotDetected) 12/28/23 16:52 Coronavirus 229E (PCR) Not Detected (NotDetected) 12/28/23 16:52 SARS-CoV-2 (PCR) Not Detected (NotDetected) 12/28/23 16:52 Coronavirus NL63 (PCR) Not Detected (NotDetected) 12/28/23 16:52 Human Metapneumovir PCR Not Detected (NotDetected) 12/28/23 16:52 Influenza Type A (PCR) Not Detected (NotDetected) 12/28/23 16:52 Influenza Type B (PCR) Not Detected (NotDetected) 12/28/23 16:52 M. pneumoniae (PCR) Not Detected (NotDetected) 12/28/23 16:52 Parainfluenza 1 (PCR) Not Detected (NotDetected) 12/28/23 16:52 Parainfluenza 2 (PCR) Not Detected (NotDetected) 12/28/23 16:52 Parainfluenza 3 (PCR) Not Detected (NotDetected) 12/28/23 16:52 Parainfluenza 4 (PCR) Not Detected (NotDetected) 12/28/23 16:52 RSV (PCR) Not Detected (NotDetected) 12/28/23 16:52 Entero/Rhino (PCR) Not Detected (NotDetected) 12/28/23 16:52 Impressions Chest X-Ray 12/28/23 16:49 TWO VIEW CHEST CLINICAL HISTORY: Dyspnea. FINDINGS: PA and lateral chest radiographs are compared to study dated 12/27/2023. The cardiomediastinal silhouette is unremarkable. The lungs and pleural spaces are clear. There is no pneumothorax. The skeletal structures are osteopenic. The bony thorax appears intact. There is a thoracolumbar scoliosis. Arthritic change is seen in the shoulders. Cholecystectomy clips are noted in the right upper quadrant. IMPRESSION: No active disease in the chest. ACT 112: Negative or not required by law. Electronically signed by: Tate Colón M.D. 12/28/2023 5:15 PM Chest CTA 12/28/23 18:52 Exam(s): CTA CHEST IV Amt: 118 ml optiray 320 EXAM: CT Angiography Chest With Intravenous Contrast CLINICAL HISTORY: Dyspnea. TECHNIQUE: Axial computed tomographic angiography images of the chest with intravenous contrast. MIPS images were created and reviewed. CTDI is 29. 25 mGy and DLP is 650.94 mGy-cm. Automated exposure control was utilized for the study. A dose lowering technique was utilized adhering to the principles of ALARA. MIP reconstructed images were created and reviewed. COMPARISON: CTA chest 02/11/2020 FINDINGS: Pulmonary arteries: Unremarkable. No pulmonary embolus. Aorta: Minimal atherosclerosis. No thoracic aortic aneurysm. Lungs: Interseptal thickening could relate to atelectasis and/or pulmonary edema. No mass. Pleural space: Unremarkable. No significant effusion. No pneumothorax. Heart: Unremarkable. No cardiomegaly. No significant pericardial effusion. No evidence of RV dysfunction. Bones/joints: There are degenerative changes of the spine. No acute fracture. Soft tissues: Unremarkable. Lymph nodes: Unremarkable. No enlarged lymph nodes. IMPRESSION: 1. No pulmonary embolus. 2. Interseptal thickening could relate to atelectasis and/or pulmonary edema. Electronically signed by: Sonia London MD 12/28/23 20:35 PM Code Status & VTE Plan Code Status Full code VTE Prophylaxis Plan VTE Prophylaxis will be ordered: Yes PG Care Time/CCT Total # of Minutes Spent Total Time Spent with Patient: Total time spent is greater than 50% in coordination of care (as documented) at patient's floor/unit and/or counseling patient: Coding Level of Care Code 92264 INT INP/OBS CARE 2/55MIN Diagnoses Asthma exacerbation J45.901 Asthma persistence: unspecified Asthma severity: unspecified severity (1) Asthma exacerbation Asthma persistence: unspecified Asthma severity: unspecified severity Quali fied Code(s): J45.901 - Unspecified asthma with (acute) exacerbation
[2023-12-28] MEDS: AZITHROMYCIN 500 MG in DEXTROSE 5% 250 ML IV ONE (22:57)
[2023-12-29] MEDS ORDERED: ONDANSETRON INJ 2 MG/ML 2 ML VIAL IV PRN (01:52)
[2023-12-29] MEDS ORDERED: ACETAMINOPHEN 325 MG TAB PO PRN (01:52)
[2023-12-29] MEDS: ALBUT/IPRATROP 3MG/0.5MG NEB 3 ML VIAL NEB SCH (07:17)
[2023-12-29 07:52] LABS: Basophils # (auto) 0.01 K/uL (0.00-0.20); Basophils % (auto) 0.2 %; Hematocrit (blood only) 38.6 % (37.0-47.0); Hemoglobin 13.3 g/dl (12.0-16.0); Immature Granulocytes # (auto) 0.02 K/uL (0.01-0.20); Immature Granulocytes % (auto) 0.4 %; Lymphocytes # (auto) 0.92 K/uL (1.20-3.40); Lymphocytes % (auto) 20.3 %; Mean Corpuscular Hemoglobin 30.2 pg (25.0-34.0); Mean Corpuscular Hgb Conc 34.5 g/dL (32.0-36.0); Mean Corpuscular Volume 87.5 fL (80.0-100.0); Mean Platelet Volume 10.3 fL (9.4-12.4); Monocytes # (auto) 0.05 K/uL (0.11-0.59); Monocytes % (auto) 1.1 %; Neutrophils # (auto) 3.54 K/uL (1.40-6.50); Platelet Count 244 K/uL (130-400); RDW Coefficient of Variation 13.1 % (11.5-14.5); RDW Standard Deviation 41.6 fL (36.4-46.3); Red Blood Count 4.41 M/uL (4.20-5.40); White Blood Count 4.54 K/ul (4.8-10.8)
[2023-12-29 08:12] LABS: Albumin Level 4.2 gm/dl (3.4-5.0); BUN Creatinine Ratio 14.7 (10-20); Calcium 9.4 mg/dl (8.6-10.3); Creatinine Clr Calc Pharmacy 58.1 ml/min; Est GFR (Non-African American) 78.5 ml/min; Phosphorus 3.1 mg/dl (2.5-4.9); Potassium 4.1 mmol/L (3.5-5.1)
[2023-12-29] MEDS: CHOLECALCIFEROL 25 MCG (1000 UNITS) TAB PO SCH (08:24)
[2023-12-29] MEDS: guaiFENesin 600 MG TABCR PO SCH (08:24)
[2023-12-29] MEDS: ASPIRIN 81 MG ECTAB PO SCH (08:24)
[2023-12-29] MEDS: methylPREDNISolone 40 MG in SYRINGE 0 ML IV SCH (08:25)
[2023-12-29] MEDS: ENOXAPARIN INJ 40 MG/0.4 ML SYR SQ SCH (08:25)
--- NOTE | 2023-12-29 09:46 | Hospitalist Progress Note ---
Date of Service December 29, 2023 Assessment & Plan (1) Asthma exacerbation: Plan: moderate intermittent asthma with exacerbation Respiratory BioFire test negative CXR: atelectasis vs edema --> exam without signs of fluid overload D-dimer mildly elevated at 530 --> CTA negative for PE Received dexamethasone 10 mg IV, normal saline 500 mL bolus, and Xopenex nebulizer treatment with reported improvement in symptoms from the ED Continue Methylprednisolone 40 mg IV every 12 hours Duonebs every 4 hours while awake and every 2 hours when necessary. Guaifenesin extended release 600 mg p.o. every 12 hours Azithromycin 500 mg IV daily (first day 12/27) Currently stable on room air Plan Dispo: continued inpatient stay, hopeful for discharge tomorrow DVT proh: Lovenox Admission and Anticipated Discharge Date Admission Date: December 28, 2023 Subjective Patient reports feeling much better than arrrival, about 75% of her baseline. denies current cough. reports she has been up and moving around the room this morning without dyspnea. good appetite. Tele SR 80s Review of Systems Review of Systems: All systems reviewed & are unremarkable except as noted in Subjective Physical Exam Physical Exam: General: NAD, VS as above, sitting up in bed, pleasant Resp: normal respiratory effort, lungs clear to auscultation. no wheezing CV: RRR, no murmur, Abd: non tender, no hepatosplenomegaly Extremities: Moves all extremities, no edema. No signs of volume overload Results & Data Results & Data Vital Signs (Past 12 Hours) Vital Signs Temp Pulse Pulse Pulse Resp BP Pulse Ox 12/29/23 08:15 74 12/29/23 07:56 36.6 C 98 H 18 155/79 H 95 12/29/23 07:19 85 18 93 12/29/23 02:24 91 H 12/29/23 01:54 12/29/23 01:54 36.5 C 83 21 139/64 94 12/29/23 01:13 83 18 123/67 94 12/29/23 00:00 78 30 H 146/92 H 98 12/28/23 22:31 80 12/28/23 22:00 64 24 101/77 99 O2 Del Method 12/29/23 08:15 12/29/23 07:56 Room Air 12/29/23 07:19 Room Air 12/29/23 02:24 12/29/23 01:54 Room Air 12/29/23 01:54 Room Air 12/29/23 01:13 Room Air 12/29/23 00:00 Room Air 12/28/23 22:31 12/28/23 22:00 Room Air Laboratory Results CBC and chemistry reviewed PG Care Time/CCT Total # of Minutes Spent Total Time Spent with Patient: Total time spent is greater than 50% in coordination of care (as documented) at patient's floor/unit and/or counseling patient: Coding Level of Care Code 29754 SUB INP/OBS CARE 2/35MIN Diagnoses Asthma exacerbation J45.901 Asthma persistence: unspecified Asthma severity: unspecified severity (1) Asthma exacerbation Asthma persistence: unspecified Asthma severity: unspecified severity Qualified Code(s): J45.901 - Unspecified asthma with (acute) exacerbation
--- NOTE | 2023-12-29 16:08 | Electrocardiogram Report ---
Test Reason : Blood Pressure : / mmHG Vent. Rate : 081 BPM Atrial Rate : 081 BPM P-R Int : 120 ms QRS Dur : 066 ms QT Int : 380 ms P-R-T Axes : 062 065 067 degrees QTc Int : 441 ms Normal sinus rhythm Nonspecific ST and T wave abnormality Abnormal ECG When compared with ECG of 11-FEB-2020 12:57, Nonspecific T wave abnormality now evident in Lateral leads Confirmed by Dakota Pastrana ([id number]) on 12/29/2023 4:07:47 PM Referred By: Stephanie Castro Confirmed By:Dakota Pastrana
[2023-12-29] MEDS: AZITHROMYCIN 500 MG in DEXTROSE 5% 250 ML IV SCH (18:44)
[2023-12-29] MEDS ORDERED: ALBUT/IPRATROP 3MG/0.5MG NEB 3 ML VIAL NEB PRN (21:40)
[2023-12-30 07:20] LABS: Albumin Level 4.2 gm/dl (3.4-5.0); BUN Creatinine Ratio 25.3 (10-20); Calcium 9.7 mg/dl (8.6-10.3); Creatinine Clr Calc Pharmacy 58.2 ml/min; Est GFR (Non-African American) 78.5 ml/min; Magnesium 2.2 mg/dl (1.7-2.4); Phosphorus 2.9 mg/dl (2.5-4.9); Potassium 4.1 mmol/L (3.5-5.1)
[2023-12-30] MEDS: FLUTICASONE FUROATE 100MCG 14 PUFFS/INHALER INH SCH (08:09)
--- NOTE | 2023-12-30 11:43 | XRay Report ---
XR chest 1V portable HISTORY: tachypnea COMPARISON: Chest CTA 12/28/2023. FINDINGS: The lungs are clear. Cardiac silhouette is normal in size. No pleural effusions. No pneumot horax. Scoliosis again noted. Degenerative changes within the shoulders. IMPRESSION: No acute process. ACT 112: Negative or not required by law. Electronically signed by: Ronaldo Kemp M.D. 12/30/2023 11:41 AM
[2023-12-30 12:03] LABS: Base Excess VBG -2.1 mEq/L; HCO3 VBG 20 mmol/L; Oxygen Saturation VBG 66.6 %; PCO2 VBG 25 mmHg (38-50); PO2 VBG 37 mmHg
[2023-12-30 12:18] LABS: D Dimer 360 ug/L FEU (0-500)
[2023-12-30] MEDS: FUROSEMIDE 20 MG TAB PO STA (13:34)
--- NOTE | 2023-12-30 14:55 | Hospitalist Progress Note ---
Date of Service December 30, 2023 Assessment & Plan (1) Asthma exacerbation: Plan: moderate intermittent asthma with exacerbation Respiratory BioFire test negative CXR: atelectasis vs edema --> exam without signs of fluid overload D-dimer mildly elevated at 530 --> CTA negative for PE Received dexamethasone 10 mg IV, normal saline 500 mL bolus, and Xopenex nebulizer treatment with reported improvement in symptoms from the ED Continue Methylprednisolone 40 mg IV every 12 hours Duonebs every 4 hours while awake and every 2 hours when necessary. Guaifenesin extended release 600 mg p.o. every 12 hours Azithromycin 500 mg IV daily (first day 12/27) Tachypnea 12/29 - CXR without acute findings - BNP mildly elevated, will give 20 mg PO lasix - trop, ddimer WNL - VBG respiratory alkalosis --> will reschedule nebs, FV, IS - patient declined anxiety and has never taken medication for this Plan Dispo: continued inpatient stay, hopeful for discharge tomorrow DVT proh: Lovenox Admission and Anticipated Discharge Date Admission Date: December 28, 2023 Subjective Patient seen earlier this morning, very tachpenic and seemed like she was having difficulty catching her breath - states this was because she was coughing from her inhaler. Visited multiple times throughout the day and continues to be tachypenic, is able to take a deep breath but then multiple quick breaths after like she has to catch her breath. Good appetite. urinating without issue no fevers or chills Review of Systems Review of Systems: All systems reviewed & are unremarkable except as noted in Subjective Physical Exam Physical Exam: General: mild distress, flush in the face, VS as above, Resp: tachypneic with accessory muscle use, lungs however are clear CV: RRR, no murmur, Abd: non tender, no hepatosplenomegaly Extremities: Moves all extremities, no edema. Psych: patient denies current worries or feelings of anxiousness Results & Data Results & Data Vital Signs (Past 12 Hours) Vital Signs Temp Pulse Pulse Resp BP Pulse Ox O2 Del Method 12/30/23 10:52 36.2 C L 84 26 H 124/72 99 Room Air 12/30/23 10:37 Room Air 12/30/23 07:09 67 12/30/23 07:08 36.4 C L 71 16 114/63 97 Room Air 12/30/23 02:51 36.5 C 87 16 123/64 97 Room Air Laboratory Results Chemistry, vbg, trop, BNP, ddimer reviewed Diagnostic Findings cxr reviewed PG Care Time/CCT Total # of Minutes Spent Total Time Spent with Patient: Total time spent is greater than 50% in coordination of care (as documented) at patient's floor/unit and/or counseling patient: Coding Level of Care Code 72810 SUB INP/OBS CARE 3/50MIN Diagnoses Asthma exacerbation J45.901 Asthma persistence: unspecified Asthma severity: unspecified severity (1) Asthma exacerbation Asthma persistence: unspecified Asthma severity: unspecified severity Qualified Code(s): J45.901 - Unspecified asthma with (acute) exacerbation
[2023-12-30] MEDS: ALBUT/IPRATROP 3MG/0.5MG NEB 3 ML VIAL NEB SCH (15:13)
[2023-12-31 07:54] LABS: Albumin Level 4.1 gm/dl (3.4-5.0); BUN Creatinine Ratio 30.6 (10-20); Calcium 9.4 mg/dl (8.6-10.3); Creatinine Clr Calc Pharmacy 60.4 ml/min; Est GFR (African American) 95.6 ml/min; Est GFR (Non-African American) 82.5 ml/min; Magnesium 2.4 mg/dl (1.7-2.4); Phosphorus 3.3 mg/dl (2.5-4.9); Potassium 4.3 mmol/L (3.5-5.1)
--- NOTE | 2023-12-31 09:39 | Discharge Summary ---
Discharge Summary Date of Service December 31, 2023 Notes For Next Care Provider Asthma exacerbation treated with IV steroids, IV antibiotics and nebulizer treatments. Was tachypneic most of the day 12/29 - ? anxiety vs acute HF with elevated BNP, responded well to lasix. discharged with PO steroid taper and azithromycin. Medication Changes From Visit azithromycin steroid taper mucinex Admission HPI Per Admitting Provider The patient is a 73-year-old female with a past medical history including asthma, bilateral carpal tunnel syndrome, vertigo, uterine prolapse, environmental allergies, hypercholesterolemia, history of primary hyperparathyroidism and nonalcoholic steatohepatitis. Patient presents to the emergency department with 5 days of worsening cough, shortness of breath and dyspnea on exertion. She did notice some improvement with nebulizer treatment while in the ED, and was referred for evaluation for admission. Principal Dx & Hospital Course #1 = Principal Diagnosis (1) Asthma exacerbation: moderate intermittent asthma with exacerbation Respiratory BioFire test negative CXR: atelectasis vs edema --> exam without signs of fluid overload D-dimer mildly elevated at 530 --> CTA negative for PE Received dexamethasone 10 mg IV, normal saline 500 mL bolus, and Xopenex nebulizer treatment with reported improvement in symptoms from the ED Recieved Methylprednisolone 40 mg IV every 12 hours --> discharged with steroids taper Duonebs every 4 hours while awake --> continue prn albuterol inhaler at home Guaifenesin extended release 600 mg p.o. every 12 hours Azithromycin 500 mg IV daily (first day 12/27) - rx for continuation at discharge Tachypnea 12/29 - CXR without acute findings - BNP mildly elevated, will give 20 mg PO lasix - trop, ddimer WNL - VBG respiratory alkalosis --> will reschedule nebs, FV, IS - patient declined anxiety and has never taken medication for this Tachypnea has improved today, patient reports feeling much better. Will discharge to home after dose of abx Plan Dispo: discharge to home today Discharge Exam General: NAD, pleasant, VS as above, Resp: CTA, no ascessory muscle use, able t o speak in complete sentences CV: RRR, no murmur, Abd: non tender, no hepatosplenomegaly Extremities: Moves all extremities, no edema. Updated Medication List Medication Instructions Recorded Confirmed Type aspirin 81 mg tablet,delayed 81 mg PO QAM 02/11/20 12/28/23 History release cholecalciferol (vitamin D3) 25 1,000 units PO QAM 05/04/20 12/28/23 History mcg (1,000 unit) capsule meclizine 25 mg tablet 25 mg PO TID PRN dizziness #30 tabs 03/16/23 12/28/23 Rx fluticasone furoate 100 1 inh inhalation DAILY #30 ea 10/06/23 12/28/23 Rx mcg/actuation blister powder for inhalation albuterol sulfate 90 mcg/actuation 2 inh inhalation QID PRN shortness 12/14/23 12/28/23 Rx aerosol inhaler (Ventolin HFA) of breath or wheezing #8.5 grams azithromycin 500 mg tablet 500 mg PO DAILY 3 days #3 tabs 12/31/23 Rx guaifenesin 600 mg tablet, 600 mg PO Q12 10 days #20 tabs 12/31/23 Rx extended release 12 hr (Mucinex) prednisone 10 mg tablet See Taper PO DIRECTED #40 tabs 12/31/23 Rx Hospital Stay Data Consultations 12/28/23 21:36 ED Decision to Admit Stat Diagnostic Imagining Performed Chest X-Ray 12/28/23 16:49 TWO VIEW CHEST CLINICAL HISTORY: Dyspnea. FINDINGS: PA and lateral chest radiographs are compared to study dated 12/27/2023. The cardiomediastinal silhouette is unremarkable. The lungs and pleural spaces are clear. There is no pneumothorax. The skeletal structures are osteopenic. The bony thorax appears intact. There is a thoracolumbar scoliosis. Arthritic change is seen in the shoulders. Cholecystectomy clips are noted in the right upper quadrant. IMPRESSION: No active disease in the chest. ACT 112: Negative or not required by law. Electronically signed by: Tate Colón M.D. 12/28/2023 5:15 PM Chest CTA 12/28/23 18:52 Exam(s): CTA CHEST IV Amt: 118 ml optiray 320 EXAM: CT Angiography Chest With Intravenous Contrast CLINICAL HISTORY: Dyspnea. TECHNIQUE: Axial computed tomographic angiography images of the chest with intravenous contrast. MIPS images were created and reviewed. CTDI is 29. 25 mGy and DLP is 650.94 mGy-cm. Automated exposure control was utilized for the study. A dose lowering technique was utilized adhering to the principles of ALARA. MIP reconstructed images were created and reviewed. COMPARISON: CTA chest 02/11/2020 FINDINGS: Pulmonary arteries: Unremarkable. No pulmonary embolus. Aorta: Minimal atherosclerosis. No thoracic aortic aneurysm. Lungs: Interseptal thickening could relate to atelectasis and/or pulmonary edema. No mass. Pleural space: Unremarkable. No significant effusion. No pneumothorax. Heart: Unremarkable. No cardiomegaly. No significant pericardial effusion. No evidence of RV dysfunction. Bones/joints: There are degenerative changes of the spine. No acute fracture. Soft tissues: Unremarkable. Lymph nodes: Unremarkable. No enlarged lymph nodes. IMPRESSION: 1. No pulmonary embolus. 2. Interseptal thickening could relate to atelectasis and/or pulmonary edema. Electronically signed by: Sonia London MD 12/28/23 20:35 PM Chest X-Ray 12/30/23 11:12 XR chest 1V portable HISTORY: tachypnea COMPARISON: Chest CTA 12/28/2023. FINDINGS: The lungs are clear. Cardiac silhouette is normal in size. No pleural effusions. No pneumothorax. Scoliosis again noted. Degenerative changes within the shoulders. IMPRESSION: No acute process. ACT 112: Negative or not required by law. Electronically signed by: Ronaldo Kemp M.D. 12/30/2023 11:41 AM Pending Results Patient Have Any Pending Studies at Discharge: No Discharge Instructions Given to Patient (Per Discharging Provider) Ms. Henry, You were hospitalized after having an asthma exacerbation. This was treated with IV antibiotics, IV steroids and nebulizer treatments. You also were breathing quite rapidly which improved as we gave you a dose of a diuretic (also called a water pill) which helped your symptoms. It is important you take your inhaler everyday and use your albuterol as needed. You will be discharged with an antibiotic - Azithromycin and steroid taper- prednisone. You will start both of these 12/31 I have also sent in Mucinex to the pharmacy, this can help with your symptoms. However, this medication is over the counter and some insurances may not pay for it. If not, please purchase some: Mucinex (guaifenesin) 600 mg every 12 hours. Generic is fine. You do NOT need to corn picker the doxycycline or prednisone prescribed by your PCP. Please keep your appointment with Pulmonology in two weeks. You should see your PCP next week. Activity: You can do normal everyday activities as your body allows. Take rest breaks if you feel tired. Do not overexert. Stop activity if you have pain, shortness of breath or feel dizzy. Follow-up appointments: Make an appointment with your primary care physician within one week of discharge. A copy of this summary will be sent to them. Every time you see your primary care physician, or any other doctor, bring your medication list, and a list of questions. CONTACT YOUR PRIMARY CARE PROVIDER if you experience any of the following: Shortness of breath or difficulty breathing Fevers or chills Feeling tired with normal activity or experiencing dizziness or fainting Difficulty following your treatment plan, or difficulty taking medications CALL 911 OR GO TO THE EMERGENCY DEPARTMENT if you experience any of the following: Severe abdominal pain or nausea/vomiting Severe chest pain, or chest pain that radiates (moves) to your jaw or arm Sudden, severe shortness of breath or difficulty breathing Thank you for allowing us to participate in your care. Total Time Total Time Spent Total Time Spent (In Minutes): Time spend day of discharge 35 minutes including direct patient care, medication reconciliation, documentation, review of labs and images, and coordination of care. Coding Level of Care Code 41515 INP/OBS DISCH >30 MIN Diagnoses Asthma exacerbation J45.901 Asthma persistence: unspecified Asthma severity: unspecified severity
== END 2023-12-31 14:42 | disposition home or self-care (01) | DRG 203 ==
LOC: ED 16:41 → SUATTDRO 22:21 → 2W 22:21